=== PATIENT | male | born 1950 | race Hispanic/Latino ===

== ENCOUNTER 2016-05-16 14:49 | Inpatient (IN) | payer OTHER ==
[2016-05-16] MEDS ORDERED: ASPIRIN PO STA (14:59)
[2016-05-16 15:13] LABS: MANUAL DIFF NEEDED? NO
--- NOTE | 2016-05-16 15:15 | PROVIDER DOCUMENTATION ---
HPI-Syncope/Dizziness - General Source: patient, family - History of Present Illness-Syncope/Dizzy If witnessed syncope, by whom?: store staff found him unconscious Prior Episodes: reports: other (one prior episode) Onset/Duration: reports: abrupt, just prior to arrival Timing: reports: improving Position/Activity at time of episode: reports: activity Symptoms prior to episode: reports: none Context: reports: lost consciousness Loss of Consciousness: prolonged (minutes) Location of injury. (If syncope resulted in an injury.): reports: head (pt reports hitting head and some pain; no visible trauma) <Hawa Jeff - Last Filed: 05/16/16 16:18> <Derek Castillo - Last Filed: 05/16/16 19:45> - General Chief Complaint: Syncope Stated Complaint: SYNCOPE Time Seen by Provider: 05/16/16 15:45 Allergies/Adverse Reactions: Patient Allergies Allergy/AdvReac Type Severity Reaction Status Date / Time No Known Allergies Allergy Verified 05/16/16 14:54 Home Medications: Home Medication List Medication Instructions Recorded Confirmed Last Taken Type No Home Medications 05/16/16 05/16/16 Unknown History - History of Present Illness-Syncope/Dizzy Nature of Presenting Problem: 66 yo M presents to ED via EMS with cc of syncope. Pt was shopping and had a syncopal episode. Pt denies any premonition and reports he came to when a stores naval roused him. Pt believes the amount of time was around 10 minutes. Pt denies chest pain and SOB. Pt denies vigorous or moderate activity at the time. Pt reports hitting his head and his back. Upon arrival to ED, pt is alert and oriented and in no apparent distress. (Hawa Jeff) Review of Systems - Adult - REVIEW OF SYSTEMS - ADULT Constitutional: reports: no symptoms reported. denies: chills, fever Eyes: reports: no symptoms reported. denies: blurred vision, double vision Ears, Nose, Mouth & Throat: reports: no symptoms reported. denies: ear pain, sinus problem Cardiovascular: reports: syncope. denies: chest pain, palpitations Respiratory: reports: no symptoms reported. denies: shortness of breath, wheezing Gastrointestinal: reports: no symptoms reported. denies: abdominal pain, hematemesis Genitourinary: reports: no symptoms reported. denies: dysuria, flank pain Musculoskeletal: reports: back pain Integumentary: reports: no symptoms reported. denies: rash, skin sores/ulcer Neurological: reports: headache/migraines, syncope Psychiatric: reports: no symptoms reported. denies: anxiety, depression Endocrine: reports: no symptoms reported. denies: cold intolerance, heat intolerance Hematologic/Lymphatic: reports: no symptoms reported. denies: blood clots, lymphedema Allergic/Immunologic: reports: no symptoms reported. denies: allergic reactions , eczema All Other Systems: Reviewed and Negative <Hawa Jeff - Last Filed: 05/16/16 16:18> Past History - Adult - PAST MEDICAL HISTORY-ADULT Review of Records: reports: Old Records Reviewed, Nursing Assessment Review, Medications Reviewed - IMMUNIZATION STATUS Childhood Immunizations: See Nurse Assessment Flu Vaccine: See Nurse Assessment <Hwaa Jeff - Last Filed: 05/16/16 16:18> Physical Exam-General - PHYSICAL EXAM-ADULT Initial Vital Signs Reviewed: Yes - CONSTITUTIONAL General Appearance: appears well, alert, no apparent distress - EYES Eyes: PERRL/EOMI, pink conjunctivae - HEAD, EARS, NOSE, MOUTH & THROAT HENMT: normocephalic/atraumatic, moist mucous membranes - NECK Neck: non-tender, full range of motion, supple - RESPIRATORY Respiratory: chest non-tender, lungs clear, normal breath sounds - CARDIOVASCULAR Cardiovascular: normal peripheral pulses, regular rate, rhythm - GASTROINTESTINAL (ABDOMEN) Abdominal Exam: normal bowel sounds, non tender, soft - LYMPHATIC Lymphatic: no adenopathy - MUSCULOSKELETAL Back Exam: normal inspection, no vertebral tenderness Extremity: normal range of motion, non-tender - SKIN Integumentary: normal color, normal turgor, warm/dry - NEUROLOGIC Neurologic: grossly normal, no motor/sensory deficits - PSYCHIATRIC Psych/Mental Status: normal mood/affect, normal thought content, normal thought process, oriented x 3 <Hawa Jeff - Last Filed: 05/16/16 16:18> Progress - EKG 1 Time of EKG reading by physician:: 14:49 EKG Read and Signed by:: Pal Henyr EKG Interpretation (*Must complete 3 of following elements*): Abnormal Rate: 72 Rhythm: Sinus rhythm with PACs QRS: RBB 2 Time of EKG reading by physician:: 15:17 EKG Read and Signed by:: Pal Henry EKG Interpretation (*Must complete 3 of following elements*): Abnormal Rate: 62 Rhythm: Sinus with PACs QRS: RBB <RandeeHawa RamirezCole - Last Filed: 05/16/16 16:18> - EKG 3 Time of EKG reading by physician:: 18:24 (3) EKG Read and Signed by:: Ramirez Cuadra EKG Interpretation (*Must complete 3 of following elements*): Abnormal Rate: 62 Rhythm: SINUS RHYTHM W/ MARKED SINUS ARRHYTHMIA [place]: left QRS: RBB NC Interval: normal ST Wave: normal - XRAY 1 XRAY: Bilateral XRAY Study: Chest XRAY Interpretation: NEGATIVE - CT/MRI 1 CT Study: Angiogram CT Results: NO PE, PNEUMONIA, OR EFFUSIONS, CARDIOMEGALY. 2 CT Study: Head CT Results: NO BLOOD. NO INJURY. - CONSULTS/PCP/HOSPITALIST Notification #1 *Consult/PCP/Hospitalist*: DR PICKARD Time Discussed: 19:43 Reason/Comments: DR CUADRA SPOKE WITH DR PICKARD. DR PICKARD WILL ADMIT. Consult Disposition: Admit <Derek Castillo - Last Filed: 05/16/16 19:45> - PLAN OF CARE/RESULTS Progress/Plan/Lab Results: Laboratory Tests 05/16/16 05/16/16 05/16/16 14:57 14:57 14:57 WBC RBC Hgb Hct MCV MCH MCHC RDW Std Deviation Plt Count MPV Immature Gran % (Auto) Neut % (Auto) Lymph % (Auto) [place] % (Auto) Eos % (Auto) Baso % (Auto) Immature Gran # (Auto) Neut # (Auto) Lymph # (Auto) [place] # (Auto) Eos # (Auto) Baso # (Auto) PT INR APTT (Factor Assay) D-Dimer Sodium 138 Potassium 3.9 Chloride 100 Carbon Dioxide 22 L Anion Gap 16 BUN 17 Creatinine 0.9 BUN/Creatinine Ratio 19 Glucose 125 H POC Glucose Calculated Osmolality 279 Calcium 9.8 Magnesium 2.2 Total Bilirubin 0.40 AST 19 ALT 17 Alkaline Phosphatase 65 Creatine Kinase 108 Troponin T < 0.010 [id number] Pept 199 Total Protein 7.5 Albumin 4.8 Globulin 3.0 Albumin/Globulin Ratio 2.0 05/16/16 05/16/16 05/16/16 14:57 14:57 14:57 WBC 12.15 H RBC 5.50 Hgb 16.9 Hct 50.0 MCV 90.9 MCH 30.7 MCHC 33.8 RDW Std Deviation 13.8 Plt Count 280 MPV 11.2 H Immature Gran % (Auto) 0.6 H Neut % (Auto) 45.6 Lymph % (Auto) 39.3 [place] % (Auto) 7.5 Eos % (Auto) 6.6 Baso % (Auto) 0.4 Immature Gran # (Auto) 0.07 H Neut # (Auto) 5.54 Lymph # (Auto) 4.78 H [place] # (Auto) 0.91 H Eos # (Auto) 0.80 H Baso # (Auto) 0.05 PT 13.1 INR 0.96 APTT (Factor Assay) 33.6 D-Dimer 2.00 H Sodium Potassium Chloride Carbon Dioxide Anion Gap BUN Creatinine BUN/Creatinine Ratio Glucose POC Glucose Calculated Osmolality Calcium Magnesium Total Bilirubin AST ALT Alkaline Phosphatase Creatine Kinase Troponin T [id number]-[id number] Pept Total Protein Albumin Globulin Albumin/Globulin Ratio 05/16/16 05/16/16 05/16/16 16:30 17:15 17:15 WBC RBC Hgb Hct MCV MCH MCHC RDW Std Deviation Plt Count MPV Immature Gran % (Auto) Neut % (Auto) Lymph % (Auto) [place] % (Auto) Eos % (Auto) Baso % (Auto) Immature Gran # (Auto) Neut # (Auto) Lymph # (Auto) [place] # (Auto) Eos # (Auto) Baso # (Auto) PT INR APTT (Factor Assay) D-Dimer Sodium Potassium Chloride Carbon Dioxide Anion Gap BUN Creatinine BUN/Creatinine Ratio Glucose POC Glucose 110 H Calculated Osmolality Calcium Magnesium Total Bilirubin AST ALT Alkaline Phosphatase Creatine Kinase 102 Troponin T < 0.010 Chg-R-Rlufpyrijip Pept Total Protein Albumin Globulin Albumin/Globulin Ratio Orders Category Date Time Status Cardiac Monitoring DIRECTED Care 05/16/16 14:59 Active Oxygen Therapy- ED Nursing DIRECTED Care 05/16/16 14:59 Active Saline Loc NOW Care 05/16/16 14:59 Active CHEST-1 VIEW [RAD] Stat Exams 05/16/16 14:59 Draft CTA [ANGIOGRAM/PULMONARY ARTERIES] [CT] Stat Exams 05/16/16 16:27 Draft HEAD W/O CONTRAST [CT] Stat Exams 05/16/16 18:31 Taken CBC WITH ELECTRONIC DIFF [HEME] Stat Lab 05/16/16 14:57 Completed CK PROFILE [SP CHEM] Stat Lab 05/16/16 14:57 Completed CK PROFILE [SP CHEM] Stat Lab 05/16/16 17:15 Completed COMPREHENSIVE METABOLIC PANEL [CHEM] Stat Lab 05/16/16 14:[address] D-DIMER PL [COAG] Stat Lab 05/16/16 14:57 Completed MAGNESIUM [CHEM] Stat Lab 05/16/16 14:57 Completed PRO B-NATRIURETIC PEPTIDE Stat Lab 05/16/16 14:57 Completed [address]IME WITH INR PL [COAG] Stat Lab 05/16/16 14:[address] [COAG] Stat Lab 05/16/16 14:57 Completed TROPONIN T Stat Lab 05/16/16 14:57 Completed TROPONIN T Stat Lab 05/16/16 17:15 Completed Aspirin Med 05/16/16 14:59 Discontinued 325 mg PO STAT STA EKG [EKG] Stat Ther 05/16/16 14:59 Draft EKG [EKG] Stat Ther 05/16/16 17:12 Draft Vital Signs - 24 hr 05/16/16 05/16/16 05/16/16 14:50 15:00 15:16 Pulse Rate 63 55 L 57 L Respiratory 16 21 15 Rate Blood Pressure 218/90 219/98 214/85 O2 Sat by Pulse 100 100 Oximetry 05/16/16 05/16/16 05/16/16 15:30 15:45 16:00 Pulse Rate 56 L 53 L 52 L Respiratory 17 18 20 Rate Blood Pressure 228/102 210/95 223/94 O2 Sat by Pulse 100 100 99 Oximetry 05/16/16 05/16/16 05/16/16 16:30 16:45 17:00 Pulse Rate 52 L 49 L 47 L Respiratory 18 16 18 Rate Blood Pressure 220/105 208/99 190/85 O2 Sat by Pulse 93 L 98 98 Oximetry 05/16/16 05/16/16 05/16/16 17:15 18:13 18:16 Pulse Rate 54 L 60 53 L Respiratory 16 13 28 H Rate Blood Pressure 218/86 202/184 205/87 O2 Sat by Pulse 98 97 99 Oximetry 05/16/16 05/16/16 18:40 18:55 Pulse Rate 60 54 L Respiratory 21 16 Rate Blood Pressure 206/86 156/88 O2 Sat by Pulse 97 Oximetry (Derek Castillo) Departure <Hawa Jeff - Last Filed: 05/16/16 16:18> - Departure Time of Disposition Order: 19:44 Certified Medical Emergency: Emergent <Derek Castillo - Last Filed: 05/16/16 19:45> - Departure DIAGNOSIS: Syncope Qualifiers: Syncope type: unspecified Qualified Code(s): R55 - Syncope and collapse Disposition: ADMITTED INPATIENT 09 Condition: Stable Additional Instructions: ED Follow Up Instructions: You have been treated by a care provider in the Emergency Department. These instructions are being provided to you so you can have an understanding of how to care for yourself upon discharge. Upon discharge from the Emergency Department, you are responsible for making arrangements for follow-up care by a physician of your choice. Take all prescribed medications as directed. Return to the Emergency Department immediately for any new or worsening symptoms. You may call the Physician Referral phone number at [phone] to obtain a list of Physicians who are taking new patients. Attestation - Scribe Verification/Attestation Scribe:: Hawa Jeff Acting as Scribe for:: Pal Henry Scribe documention review:: This chart was documented by a scribe and accurately reflects the service the provider performed and the decisions made by the provider. - Physician/ MANJINDER Attestation Patient care was provided by Advanced Practice Provider:: No <Hawa Jeff - Last Filed: 05/16/16 16:18> - Scribe Verification/Attestation Scribe:: Derek Castillo Acting as Scribe for:: Ramirez Cuadra Scribe documention review:: This chart was documented by a scribe and accurately reflects the service the provider performed and the decisions made by the provider. <Derek Castillo - Last Filed: 05/16/16 19:45> Physician Attestation
[2016-05-16 15:20] LABS: BASO% 0.4 % (0.0-0.8); EOS% 6.6 % (0.0-10.0); HEMOGLOBIN 16.9 g/dL (14.0-18.0); IMM GRAN# 0.07 X1000 (0.0-0.04); IMM GRAN% 0.6 % (0.0-0.5); LYMPH# 4.78 X1000 (1.2-3.4); LYMPH% 39.3 % (20.5-51.1); MCH 30.7 PG (27-31); MCHC 33.8 g/dL (33-37); MCV 90.9 FL (81-99); MONO# 0.91 X1000 (0.11-0.59); MONO% 7.5 % (1.7-9.3); MPV 11.2 FL (7.4-10.4); NEUT% 45.6 % (42.2-75.2); PLT 280 X1000 (130-400)
[2016-05-16 15:46] LABS: PROTIME 13.1 Seconds (12.1-15.5); PTT PL 33.6 Seconds (22.6-43.9)
[2016-05-16 15:47] LABS: INR 0.96 (0.86-1.15)
--- NOTE | 2016-05-16 16:02 | EKG Report ---
Test Performed on : 05/16/2016 3:17:06 PM Test Reason : TINY Blood Pressure : / mmHG Vent. Rate : 062 BPM Atrial Rate : 062 BPM P-R Int : 156 ms QRS Dur : 174 ms QT Int : 470 ms P-R-T Axes : 027 -27 021 degrees QTc Int : 477 ms Sinus rhythm. with premature atrial complexes. Right bundle branch block Abnormal ECG When compared with ECG of 16-MAY-2016 14:49, (Unconfirmed) No significant change was found Unconfirmed Result
[2016-05-16 16:17] LABS: SODIUM 138 mmol/L (136-145)
[2016-05-16 16:18] LABS: AGAP 16; ALBUMIN 4.8 g/dL (3.5-5.0); BUN 17 mg/dL (8-22); CALCIUM 9.8 mg/dL (8.8-10.2); CHLORIDE 100 mmol/L (98-107); COSMO 279; POTASSIUM 3.9 mmol/L (3.5-5.1); TCO2 22 mmol/L (25-35); TOTAL PROTEIN 7.5 g/dL (6.3-8.3)
[2016-05-16 16:19] LABS: ALKALINE PHOSPHATASE 65 U/L (32-122); CK PROFILE 108 U/L (24-204); GOT 19 U/L (10-34); GPT 17 U/L (10-44); MAGNESIUM 2.2 mg/dL (1.5-2.7)
--- NOTE | 2016-05-16 17:47 | Diag Imaging Result Document ---
PROCEDURE NAME: CHEST-1 VIEW - 05/16/2016 CHEST, SINGLE VIEW: FINDINGS: No comparison films. The lungs are well expanded. The heart is not enlarged. The vessels are not distended. No pneumonia. No pleural effusions identified. IMPRESSION: Negative chest.
--- NOTE | 2016-05-16 18:45 | EKG Report ---
Test Performed on : 05/16/2016 5:10:21 PM Test Reason : syncope ekg #2 Blood Pressure : / mmHG Vent. Rate : 066 BPM Atrial Rate : 066 BPM P-R Int : 148 ms QRS Dur : 164 ms QT Int : 466 ms P-R-T Axes : 032 -31 011 degrees QTc Int : 488 ms Sinus rhythm. with premature atrial complexes. Left axis deviation Right bundle branch block Abnormal ECG When compared with ECG of 16-MAY-2016 15:17, (Unconfirmed) No significant change was found Unconfirmed Result
--- NOTE | 2016-05-16 19:32 | Diag Imaging Result Document ---
PROCEDURE NAME: ANGIOGRAM/PULMONARY ARTERIES - 05/16/2016 STUDY: CT chest with intravenous contrast. No pleural effusions. No cardiomegaly. No thoracic aortic aneurysm or dissection. Normal opacification of the pulmonary arteries and the major branches. No enlarged mediastinal or hilar lymph nodes. There are no infiltrates. No bronchiectasis. I do not identify a lung mass. IMPRESSION: 1. No pneumonia. 2. No pulmonary emboli. A preliminary report was given at 6:18 p.m.
[2016-05-16] MEDS ORDERED: ZOFRAN IV PRN (19:45)
[2016-05-16] MEDS ORDERED: TYLENOL PO PRN (19:45)
[2016-05-16] MEDS ORDERED: NS 1,000 ML IV SCH (19:45)
--- NOTE | 2016-05-16 20:24 | Diag Imaging Result Document ---
PROCEDURE NAME: HEAD W/O CONTRAST - 05/16/2016 STUDY: CT brain without contrast. PROTOCOL: Dose reduction protocol. Contrast is present from pulmonary CT performed earlier. No parenchymal hemorrhage. No epidural or subdural hematoma. No subarachnoid hemorrhage. No mass identified. No midline shift. No hydrocephalus. No sinus opacification. There is a tiny amount of mucus in the right maxillary and right sphenoid sinuses. IMPRESSION: No hemorrhage. Negative brain CT. A preliminary report was given at 7:32 p.m.
[2016-05-17 06:24] LABS: HEMATOCRIT 46.6 % (42.0-52.0); HEMOGLOBIN 15.6 g/dL (14.0-18.0); MCH 30.6 PG (27-31); MCHC 33.5 g/dL (33-37); MCV 91.4 FL (81-99); MPV 11.3 FL (7.4-10.4); RBC 5.1 XMIL (4.7-6.1)
[2016-05-17 06:32] LABS: AGAP 11; ALBUMIN 4.1 g/dL (3.5-5.0); ALKALINE PHOSPHATASE 55 U/L (32-122); BUN 17 mg/dL (8-22); CALCIUM 8.8 mg/dL (8.8-10.2); CHLORIDE 101 mmol/L (98-107); COSMO 273; GOT 16 U/L (10-34); GPT 14 U/L (10-44); MAGNESIUM 2.1 mg/dL (1.5-2.7); SODIUM 136 mmol/L (136-145); TCO2 23 mmol/L (25-35); TOTAL PROTEIN 6.8 g/dL (6.3-8.3)
[2016-05-17] MEDS ORDERED: PRINIVIL PO SCH (09:00)
[2016-05-17] MEDS ORDERED: APRESOLINE IV PRN (09:14)
[2016-05-17] MEDS ORDERED: ASPIRIN PO SCH (09:30)
--- NOTE | 2016-05-17 11:07 | HISTORY AND PHYSICAL ---
PRIMARY CARE PHYSICIAN: None. CHIEF COMPLAINT: Syncope while shopping. HISTORY OF PRESENTING ILLNESS: This is a 66-year-old, male, who presented to [facility] ER after he had been shopping and began feeling some dizziness and passed out while shopping. States he did hit his head and his back. When he arrived to the emergency room he had a blood pressure of 225/103. LABORATORY DATA: Showed a white blood cell count of 12.15. Had a D-dimer of 2.00. His cardiac enzymes x3 sets have been negative. His echocardiogram showed sinus rhythm with PACs with a right bundle branch block at 62. A pulmonary arteriogram showed no pneumonia and no pulmonary emboli. A CT of the head showed no hemorrhage, negative brain CT. He was admitted for further evaluation and treatment. PAST MEDICAL HISTORY: None. PAST SURGICAL HISTORY: None. FAMILY HISTORY: Noncontributory. SOCIAL HISTORY: Currently lives with his . Denies any tobacco, alcohol, or illicit drug use. ALLERGIES: He has no known drug allergies. HOME MEDICATIONS: He was not taking any medications on a routine basis. LABORATORY DATA: Showed a white blood cell count of 12.15, a hemoglobin of 16.9 hematocrit 50, platelets 280,000. PT and INR of 13.1 and 0.96 with a D-dimer of 2.00. Sodium of 138, potassium 3.9, chloride 100, CO2 22, BUN of 17, creatinine 0.9, glucose 125. Cardiac enzymes x3 sets were negative. CT of the head showed no hemorrhage. Negative brain CT. Pulmonary arteriogram showed no pulmonary emboli. No pneumonia. EKG showed sinus rhythm with PACs with a right bundle branch block at 62. Chest x-ray showed a negative chest. REVIEW OF SYSTEMS: He denied any blurred vision. He was positive for dizziness, denied any chest pain, coughing, shortness of breath, constipation, diarrhea, burning or hurting with urination. Denied headache. PHYSICAL EXAMINATION: VITAL SIGNS: Again on arrival his vital signs were a pulse of 68, respirations 18, blood pressure 225/103, saturating 98% on room air. Currently, he has a temperature of 97.5 degrees, pulse 61, respirations 16, blood pressure 204/85 saturating 100% on room air. GENERAL: This is a 66-year-old male who is lying in the bed, and answers all questions appropriately. HEENT: Normocephalic and atraumatic. Pupils are equal, round, and reactive to light. The extraocular movements are intact. The oropharynx and nares are clear. NECK: Supple. LUNGS: Clear to auscultation bilaterally with equal lung expansion and chest wall movement. HEART: With regular rate and rhythm. No murmurs, rubs, or gallops. ABDOMEN: Soft, nontender, nondistended. Bowel sounds are present x4 quadrants. EXTREMITIES: There is no clubbing, cyanosis, or edema. NEUROLOGICAL: The cranial nerves 2-12 appear grossly intact. ASSESSMENT: 1. Syncope. 2. Accelerated hypertension, new onset. 3. Elevated D-dimer. PLAN: He was admitted to the medical unit at [facility]. Neuro checks q.4 hours for 24 hours. Placed on telemetry. We will obtain a carotid ultrasound bilaterally and echocardiogram and a lower extremity venous Doppler. He was placed on lisinopril 10 mg p.o. daily, Zofran 4 mg IV q.4 hours, Tylenol 650 p.o. q.6, hydralazine 10 mg IV every 6 p.r.n. for a systolic blood pressure greater than 180, and diastolic blood pressure greater than 100, and we will give him his aspirin daily 325 mg. Dictated by ANU Boss for Ignacio Hunt MD
[2016-05-17 16:13] VITALS: BP 164/72
--- NOTE | 2016-05-18 04:21 | ECHO REPORT ---
ORDER DATE: 05/17/2016 MEASUREMENTS: Left ventricular end-diastolic diameter 4.1 and systolic diameter 2.9. Posterior wall thickness 1.5, septal thickness 1.5, left atrium 4.1, aortic root 3.2. SUMMARY: 1. Adequate acoustic windows. 2. Sclerotic changes and calcification involving the aortic valve, particularly noncoronary cusp. The aortic valve opening appears adequate on two-dimensional images. Peak gradient across the aortic valve is 28 mmHg with a mean gradient of 15 mmHg. Mild aortic stenosis is suggested. Mitral and tricuspid valves are without obstruction abnormality, with mild mitral regurgitation and trace tricuspid regurgitation. Pulmonic valve was without obstruction abnormality. There is trace aortic insufficiency. Mitral, tricuspid, and pulmonic valves are without obstruction abnormality, with mild mitral regurgitation and trace tricuspid station. Aortic root is normal in size. 3. Normal left ventricular chamber size with moderate concentric left hypertrophy demonstrated. Estimated left ejection fraction is 60%. No regional wall motion abnormalities are evident. Doppler suggests normal left ventricular diastolic function. Left atrium is mildly enlarged. Right atrial and right ventricle are normal size with grossly preserved right ventricular systolic performance. 4. No pericardial effusion. 5. Appearance of inferior vena cava suggests normal central venous pressure. CONCLUSIONS: 1. Fibrocalcific changes involving the aortic valve, particularly noncoronary cusp with mild aortic stenosis and trace aortic insufficiency. 2. Mild mitral regurgitation. 3. Moderate concentric left ventricular hypertrophy with preserved left ventricular function. 4. Mild left atrial enlargement.
--- NOTE | 2016-05-18 06:32 | CONSULTATION ---
DATE OF CONSULTATION: 05/17/2016 CONSULTATION REQUESTED BY: Hospitalist Service. REASON FOR CONSULTATION: Syncope. HISTORY: Mr. Evangelista is a 66-year-old [place] male who presented to the hospital on the day of admission at about 2:59 p.m. with complaints that he was shopping at a grocery store and, all of a sudden, as he was standing by the [employer] site, he lost consciousness for a very short period of time. He had no prodrome of this syncopal episode. was next to him. He did not appear to be pale or diaphoretic. He recovered consciousness very quickly, however, they called the ambulance and he was brought to the hospital. Upon presentation, his electrocardiogram was noted to have a pattern of sinus rhythm with a right bundle branch block, a left anterior fascicular block, and PACs. Subsequent EKG shows exactly the same pattern. No ischemia is noted. They did a CT of the chest with contrast and that showed no pneumonia, no pulmonary emboli. A 2D echocardiogram has been done and it shows a mild degree of aortic stenosis, a [id number] degree of mitral regurgitation, normal ejection fraction of the left ventricle. The patient had a troponin level checked, total of 2 times, both negative. Pro BNP level is normal. Chest x-ray shows no acute abnormality. The patient basically has not had any further complaints since admission. The patient states that he is able to walk up to 6 miles 3 times a week. He has really no complaints of any kind. His says that he drinks too much Coca [employer] and he does not really complain of anything. PAST MEDICAL HISTORY: His past medical history is really negative. He has not been sick or in the hospital in many years. PAST SURGICAL HISTORY: He has no past surgical history to speak of. FAMILY HISTORY: Family history is noncontributory. SOCIAL HISTORY: He has been to his for more than 40 years. They have two grownup children. He used to work for [employer] for 40 years and he retired about 8 or 9 years ago. He is not a smoker, not a drinker. MEDICATIONS: He does not take any prescription medication. ALLERGIES: He has no reported allergies. REVIEW OF SYSTEMS: He really is a healthy person. Multiple systems, hematology , metabolic, neurological, cardiovascular, pulmonary, GI, musculoskeletal, skin, hearing, vision, etc. are all negative. No psychiatric illness. PHYSICAL EXAMINATION: VITAL SIGNS: Today blood pressure is 164/72. Temperature is 97.8. Pulse 93. Respirations 16. GENERAL: He is awake, alert, oriented, in no distress. HEENT: Unremarkable. CHEST: Clear to auscultation and percussion. CARDIAC: Heart sounds are regular and rhythmic with some extrasystole. He does have a systolic murmur over the aortic area and also at the apex of the left ventricle. Both are about 2/6 in intensity. ABDOMEN: Soft, nontender. No masses. No hepatomegaly. EXTREMITIES: Show good pulses, no peripheral edema. NEUROLOGIC: He moves four extremities. He has no obvious deficit. IMPRESSION: 1. Patient who presented to the hospital with syncopal episode. 2. Patient has an abnormal electrocardiogram with a right bundle branch block and left anterior fascicular block. 3. Patient has hypertension which is a newly diagnosed condition. RECOMMENDATIONS: At this point in time, the patient was advised to follow a very healthy lifestyle. Maintain adequate hydration. Avoid salt. I would like to give him a 48-hour Holter monitor for evaluation of his rhythm and then, if nothing is found, I will give him a 30-day PHILLIP monitor. I will arrange for followup in my office. We will plan on doing at some point a treadmill exercise stress test. Further advice will be forthcoming. Of note, I must mention that I have reviewed this patient's CT of the chest that was done at the time of admission because of a diagnosis of syncope. That CT scan of the chest shows that he has extensive calcification of the left anterior descending coronary artery and also a calcification of the right coronary artery. We will suggest to the patient to take baby aspirin every day and to monitor his blood pressure at home. We will arrange for followup at the office within the next few days. Further instructions will be forthcoming. MTDD
--- NOTE | 2016-05-18 07:14 | Extremity Venous Study ---
PROCEDURE NAME: Carotid Ultrasound - 05/17/2016 CAROTID FLOW STUDIES: FINDINGS: There is mild atherosclerotic plaquing at the bilateral carotid bulbs. Maximum systolic velocity in the right internal carotid artery is 104 cm/sec, maximal diastolic velocity is 7 cm/sec. The right internal to common carotid artery systolic velocity ratio is 0.97. The flow velocities and ratio are consistent with less than 40% stenosis in the right internal carotid artery. Maximum systolic velocity in the left internal carotid artery is 95 cm/sec, and maximum diastolic velocity is 25 cm/sec. The left internal to common carotid artery systolic velocity ratio is 0.65. The flow velocities and ratio are consistent with less than 40% stenosis in the left internal carotid artery. The bilateral vertebral arteries demonstrate antegrade flow. IMPRESSION: Mild atherosclerotic plaquing at the bilateral carotid bulbs. No evidence of hemodynamically significant stenosis in either carotid system.
--- NOTE | 2016-05-18 15:04 | DISCHARGE SUMMARY ---
ADMISSION DATE: 05/17/2016 DISCHARGE DATE: 05/17/2016 DISCHARGE DIAGNOSES: 1. Syncope resolved. 2. Right bundle branch block with left anterior fascicular block. 3. Hypertension. CONSULTATIONS: Cardiology. PROCEDURES: None. BRIEF HOSPITAL COURSE: Patient is a 66-year-old male who presented to the emergency department after a syncopal episode. He was noted to have an abnormal EKG. Dr. Salcido was consulted. Uncertain of how much of this is old versus new. Patient fortunately was able to ambulate without any difficulty. On discharge he was awake, alert. He was in no distress and, therefore, he will be discharged home. DISPOSITION: The patient will be discharged home. FOLLOWUP: He will follow up outpatient with Cardiology in the next day or 2 to get a Holter monitor. He will follow up afterwards with Dr. Salcido for results as well as for further treatment of his blood pressure. DISCHARGE TIME: 35 minutes was spent in discharge planning and instructions.
== END 2016-05-17 20:41 | disposition home or self-care (01) | DRG 312 ==
LOC: P.ED 14:49 → P.MEDSURG 20:14
PROVIDERS: ATTEND Family Medicine
DX: R55 Syncope and collapse (principal); I10 Essential (primary) hypertension; I49.1 Atrial premature depolarization; I45.10 Unspecified right bundle-branch block; I44.4 Left anterior fascicular block
CPT/HCPCS: 36415; 70450; 71010; 71275; 80053; 82550; 82948; 83735; 83880; 84443; 84484; 85025; 85027; 85379; 85610; 85730; 93005; 93306; 93880; 93970; J0360; J7030; Q9967

== ENCOUNTER 2016-08-22 15:18 | Inpatient (IN) ==
--- NOTE | 2016-08-22 16:02 | EKG Report ---
Test Performed on : 08/22/2016 3:43:13 PM Test Reason : TINY Blood Pressure : / mmHG Vent. Rate : 056 BPM Atrial Rate : 056 BPM P-R Int : 186 ms QRS Dur : 162 ms QT Int : 484 ms P-R-T Axes : 049 -23 020 degrees QTc Int : 467 ms Sinus bradycardia. Possible Left atrial enlargement Right bundle branch block Abnormal ECG When compared with ECG of 16-MAY-2016 18:24, No significant change was found Unconfirmed Result
--- NOTE | 2016-08-22 16:46 | Diag Imaging Result Doc PS360 ---
EXAM: CHEST-2 VIEWS INDICATION: syncope TECHNIQUE: 2 views COMPARISON: 05/16/2016 FINDINGS: There is suggestion of minimal linear atelectasis at the right lower lung zone. The lungs are grossly clear, otherwise. There is no discrete pleural fluid collection or pneumothorax. The cardiomediastinal silhouette and central vasculature are grossly unremarkable. IMPRESSION: Minimal right lower lung zone atelectasis. Electronically signed by Terence Mc 08/22/2016 4:43 PM
[2016-08-22 16:58] LABS: MANUAL DIFF NEEDED? NO
[2016-08-22 17:00] LABS: BASO% 0.3 % (0.0-0.8); EOS# 0.46 X1000 (0.0-0.7); HEMATOCRIT 40.6 % (42.0-52.0); HEMOGLOBIN 14.3 g/dL (14.0-18.0); IMM GRAN# 0.02 X1000 (0.0-0.04); IMM GRAN% 0.2 % (0.0-0.5); LYMPH# 2.04 X1000 (1.2-3.4); LYMPH% 17.8 % (20.5-51.1); MCH 31.2 PG (27-31); MCHC 35.2 g/dL (33-37); MCV 88.5 FL (81-99); MONO# 1.36 X1000 (0.11-0.59); MONO% 11.9 % (1.7-9.3); NEUT% 65.8 % (42.2-75.2); PLT 309 X1000 (130-400); RBC 4.59 XMIL (4.7-6.1)
[2016-08-22 17:26] LABS: AGAP 13; ALBUMIN 4.3 g/dL (3.5-5.0); ALKALINE PHOSPHATASE 63 U/L (32-122); BUN 11 mg/dL (8-22); CALCIUM 9.5 mg/dL (8.8-10.2); CHLORIDE 90 mmol/L (98-107); CK PROFILE 99 U/L (24-204); COSMO 255; GOT 19 U/L (10-34); GPT 40 U/L (10-44); POTASSIUM 4.3 mmol/L (3.5-5.1); SODIUM 127 mmol/L (136-145); TCO2 25 mmol/L (25-35); TOTAL PROTEIN 6.7 g/dL (6.3-8.3)
--- NOTE | 2016-08-22 17:28 | PROVIDER DOCUMENTATION ---
This chart was entered by Racheal Soto Scribe, acting as scribe for Pal Henry MD. HPI-General Adult - General Chief Complaint: B/P Problems Stated Complaint: WEAKNESS/FAINTED Time Seen by Provider: 08/22/16 15:52 Source: patient, family Allergies/Adverse Reactions: Patient Allergies Allergy/AdvReac Type Severity Reaction Status Date / Time No Known Allergies Allergy Verified 08/22/16 15:29 Home Medications: Home Medication List Medication Instructions Recorded Confirmed Last Taken Type Apixaban [Eliquis] 1 tab PO BID 08/22/16 08/22/16 08/22/16 History Labetalol [Trandate] 1 tab PO BID 08/22/16 08/22/16 08/22/16 History - History of Present Illness -Gen Adult Nature of Presenting Problems: 66 yo M presents to the ER with complaint of weakness, dizziness, and syncopal episode this morning. 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 Upon arrival pt has a BP of 209/94. also reports him urinating frequently at night. Denies any CP, SOB, or BULLARD. Onset/Duration: reports: this morning Associated Symptoms: reports: dizziness, syncope, weakness Review of Systems - Adult - REVIEW OF SYSTEMS - ADULT Constitutional: denies: chills, fever Cardiovascular: denies: chest pain, palpitations Respiratory: denies: cough, shortness of breath Gastrointestinal: denies: abdominal pain, diarrhea, nausea, vomiting Past History - Adult - PAST MEDICAL HISTORY-ADULT Review of Records: reports: Nursing Assessment Review, Medications Reviewed Cardiovascular: reports: HTN - IMMUNIZATION STATUS Childhood Immunizations: See Nurse Assessment Flu Vaccine: See Nurse Assessment Physical Exam-General - PHYSICAL EXAM-ADULT Initial Vital Signs Reviewed: Yes - CONSTITUTIONAL General Appearance: alert, no apparent distress - EYES Eyes: PERRL/EOMI, pink conjunctivae - HEAD, EARS, NOSE, MOUTH & THROAT HENMT: normocephalic/atraumatic, normal ENT inspection - NECK Neck: supple, normal inspection. negative: carotid bruit - RESPIRATORY Respiratory: chest non-tender, lungs clear, normal breath sounds, no pleuratic chest pain, no respiratory distress, no accessory muscle use - CARDIOVASCULAR Cardiovascular: normal peripheral pulses, bradycardia, systolic murmur - GASTROINTESTINAL (ABDOMEN) Abdominal Exam: normal bowel sounds, non tender, soft - MUSCULOSKELETAL Back Exam: no CVA tenderness, no vertebral tenderness Extremity: normal gait, normal inspection - SKIN Integumentary: normal color, warm/dry - NEUROLOGIC Neurologic: grossly normal, no motor/sensory deficits - PSYCHIATRIC Psych/Mental Status: normal mood/affect, normal thought content, normal thought process, oriented x 3 Progress - PLAN OF CARE/RESULTS Progress/Plan/Lab Results: Vital Signs - 8 hr 08/22/16 15:30 Temperature 97.7 F Pulse Rate 48 L Respiratory Rate 16 Blood Pressure 208/96 O2 Sat by Pulse Oximetry 99 Result Diagrams: 08/22/16 16:54 08/22/16 16:54 - EKG 1 Time of EKG reading by physician:: 15:43 EKG Read and Signed by:: Pal Henry EKG Interpretation (*Must complete 3 of following elements*): Abnormal Rate: 56 Rhythm: sinus javid [place]: normal QRS: RBB WA Interval: normal ST Wave: normal Comments: possible left atrial enlargement - XRAY 1 XRAY Study: Chest Impression: Normal (negative, per radiologist) - CONSULTS/PCP/HOSPITALIST Notification #1 *Consult/PCP/Hospitalist*: Dr. Ben Slade Discussed: 16:10 Reason/Comments: Admit Consult Disposition: Admit #2 Consult: Dr. Gilbert Slade Discussed: 16:37 Consult Disposition: Will see in ED Departure - Departure Date of Disposition Decision: 08/22/16 Time of Disposition Decision: 17:26 DIAGNOSIS: Syncope, HBP (high blood pressure), AV block, 3rd degree Disposition: HOME 01 Certified Medical Emergency: Emergent Condition: Stable Additional Freetext Instructions: ED Follow Up Instructions: You have been treated by a care provider in the Emergency Department. These instructions are being provided to you so you can have an understanding of how to care for yourself upon discharge. Upon discharge from the Emergency Department, you are responsible for making arrangements for follow-up care by a physician of your choice. Take all prescribed medications as directed. Return to the Emergency Department immediately for any new or worsening symptoms. You may call the Physician Referral phone number at [phone] to obtain a list of Physicians who are taking new patients. Referrals and Follow-Ups: RENE HUMMEL [Primary Care Provider] - - Critical Care Note This patient required my direct & personal management of CC.: No This chart was documented by the indicated scribe, (Racheal Soto Scribe) and accurately reflects the services I performed and decisions made by me, Pal Henry MD, as attested by the provider's signature.
[2016-08-22] MEDS ORDERED: ZOFRAN IV PRN (17:40)
[2016-08-22] MEDS ORDERED: APRESOLINE IV PRN ×2 (17:40→19:03)
[2016-08-22] MEDS ORDERED: NS 1,000 ML IV SCH (17:40)
--- NOTE | 2016-08-22 18:19 | HISTORY AND PHYSICAL ---
CHIEF COMPLAINT: Syncope. HISTORY OF PRESENT ILLNESS: This is a 66-year-old male with a history of hypertension, hyponatremia, atrial fibrillation and syncope. He presented to the emergency room after having a witnessed syncopal episode per his . She stated that he was standing up talking on the phone and he became very still, had his eyes open wide and he fell to the floor. He had no seizure activity, no incontinence of bowel or bladder. There was a little bit of time before he woke up. There is a language barrier but it seems like it is probably 30 seconds or less in talking to the . The patient remembers stating talking on the phone. He does not remember a feeling of dizziness, shortness of breath, nausea, warmth or having any warning. They reported negative history until sometime about 2-1/2 or 3 months ago when he had another syncopal episode and was taken to the emergency room. He ultimately ended up being admitted in [facility] and stayed for somewhere between 7 and 14 days with diagnosis of atrial fibrillation, started on Eliquis and labetalol 100 mg b.i.d. He has been on this medication with no trouble until Tuesday. He started having a little dizziness and feeling tired Tuesday and this did progress to where , Tuesday he started having dizziness when he walked, he would have to walk very slow. Yesterday he sat around a lot to keep from being dizzy then today he had a syncopal episode while standing. He denied any chest pain, palpitations, warning of syncope, nausea, vomiting, shortness of breath, PND, orthopnea. PAST MEDICAL HISTORY: Hypertension, hyponatremia, atrial fibrillation. PAST SURGICAL HISTORY: Denies. SOCIAL HISTORY: Denies alcohol, tobacco, or illicit drug use. He does live with his . He is retired from the [employer]. ALLERGIES: No known drug allergies. HOME MEDICATIONS: Labetalol 100 mg p.o. b.i.d. and Eliquis 2.5 mg p.o. b.i.d. REVIEW OF SYSTEMS: A 14 point review of systems is discussed with the patient with pertinent positives stated in HPI. He denied chest pain, chest pressure, palpitations, shortness of breath, cough, fever, chills, nausea, vomiting, diarrhea, constipation, black or bloody vomitus, black or bloody stools, hematuria, dysuria, frequency, urgency. PHYSICAL EXAMINATION: GENERAL: This is a 66-year-old male who is lying in the bed in no distress. VITAL SIGNS: Blood pressure is 190/88 with a heart rate varying from 40-46, respirations are 16, temperature is 97.7 degrees, O2 saturations are 99% on room air. HEENT: Head is normocephalic, atraumatic. Pupils equal, round, react to light. EOMs are intact. Sclerae anicteric. Mucous membranes are moist. NECK: Supple. Trachea midline. CARDIOVASCULAR: He is bradycardic with a rate varying between 40 and 44. S1 and S2 appreciated. PULMONARY: Breath sounds are clear. No increased work of breathing noted. GASTROINTESTINAL: Abdomen is soft, nontender, nondistended with bowel sounds in all 4 quadrants. BACK: No CVAT. No spine tenderness. MUSCULOSKELETAL: Good range of motion of joints. NEUROLOGIC: He is alert and oriented x3. Cranial nerves 2-12 grossly intact. EXTREMITIES: No clubbing, cyanosis, or edema. Pulses are palpable x4. Calves are nontender. DIAGNOSTICS: WBC is 11.45 with hemoglobin 14.3, hematocrit 40.6, and platelets of 309,000. Sodium is 127, potassium 4.3, BUN 11, creatinine 0.8 with a glucose of 103. EKG revealed sinus bradycardia at a rate of 56 with a right bundle. When compared to EKG of May 2016 there was no significant change found. In review of the EKG in May he did have 2 EKGs, at this time his rate was 64 and 66 and he did have a right bundle. ASSESSMENT AND PLAN: 1. Syncope. Will hold his beta jassi, hold his labetalol, will hold any rate controlling medications. He will be placed on telemetry. He will remain on bedrest. We will transfer to [facility] and Cardiology can follow daily. 2. Hypertension. We will add hydralazine IV p.r.n. and monitor vital signs. 3. Hyponatremia. According to the family members, he was in [facility] for quite some time and during this time he was told he needed to see a scrap picker. He is supposed to see Dr. Liu coming up but we are not sure when the date is, he has not seen him yet. We will give saline and gently hydrate. 4. Hypertension. We will hold any antihypertensives. At present will use hydralazine. 5. History of atrial fibrillation. They state that he was on labetalol for his hypertension and his atrial fibrillation. We will of course hold any rate controlling medications. Will continue Eliquis and follow. 6. Deep vein thrombosis prophylaxis. Will continue his Eliquis and GI prophylaxis will start Prilosec. 7. The patient had an appointment with Dr. Bruce, pocket creaser in [place]. The stated that because his sodium was low they canceled this appointment but he was supposed to follow up with his primary care physician. We have spoken with Dr. Contreras with cardiology, myself as well as the ER doctor have. He will be followed by Cardiology here. We will obtain records from [facility]. We will trend labs. Further treatments pending hospital course. Dictated by ANU Petersen for Ignacio Hunt MD cc: ANU Petersen MD
[2016-08-22] MEDS ORDERED: PROCARDIA ER PO ONE (19:04)
[2016-08-22] MEDS ORDERED: ATROPINE IV PRN (19:04)
[2016-08-22] MEDS ORDERED: ADALAT CC PO ONE (19:15)
[2016-08-22] MEDS: PRINIVIL PO SCH (22:57)
[2016-08-22] MEDS: ELIQUIS PO SCH (22:58)
[2016-08-23 07:27] LABS: AGAP 17; ALBUMIN 4.9 g/dL (3.5-5.0); ALKALINE PHOSPHATASE 76 U/L (32-122); BUN 8 mg/dL (8-22); CALCIUM 9.7 mg/dL (8.8-10.2); CHLORIDE 88 mmol/L (98-107); COSMO 254; GOT 19 U/L (10-34); GPT 42 U/L (10-44); POTASSIUM 4.3 mmol/L (3.5-5.1); SODIUM 128 mmol/L (136-145); TCO2 23 mmol/L (25-35); TOTAL BILIRUBIN 1.12 mg/dL (0.20-1.00); TOTAL PROTEIN 7.4 g/dL (6.3-8.3)
[2016-08-23 09:01] LABS: HEMATOCRIT 46.2 % (42.0-52.0); HEMOGLOBIN 16.3 g/dL (14.0-18.0); MCH 31.1 PG (27-31); MCHC 35.3 g/dL (33-37); MCV 88.2 FL (81-99); MPV 11.2 FL (7.4-10.4); RBC 5.24 XMIL (4.7-6.1)
[2016-08-23] MEDS: ELIQUIS PO SCH ×2 (09:33→22:41)
[2016-08-23] MEDS: PRINIVIL PO SCH ×2 (09:33→22:41)
--- NOTE | 2016-08-23 10:32 | PROGRESS NOTE ---
DATE: 08/23/2016 HISTORY: Patient came in from syncope episode. A 66-year-old with a history of hypertension, hyponatremia, atrial fibrillation, and he had a syncopal episode. Presented to the emergency room having a witnessed syncopal episode. His stated that he was standing up and talking on the phone. He became very still. He had his eyes open wide and fell to the floor. He had no seizure activity. No incontinence of bowel or bladder. There was a little bit of time before he woke up. There is a language barrier but it seemed to be about 30 seconds or less, talking to the . The patient remembers standing and talking on the phone. Does not remember the feeling of dizziness, shortness of breath, nausea, or warmth, or any other warning. Reported negative history until sometime about 2-1/2 to 3 months ago where he had another syncopal episode and was taken to the emergency room. He ended up having to be admitted to [facility], he states 7-14 days. Diagnosed with atrial fibrillation. Started on Eliquis and labetalol, and has been on this medication with no trouble. Started having a little dizziness and feeling tired Tuesday. Did progress to where on or Tuesday, he stated he was having dizziness when he walked. He would have to walk very slowly. Yesterday, he sat around a lot and kept being dizzy. The day before admission, he was very dizzy and then on the day of admission, had a syncopal episode while standing. History of hypertension, hyponatremia, atrial fibrillation. The patient states he feels good this morning. No episodes. No chest pain. His chest x-ray on 08/22/2016, minimal right lower lung atelectasis. LAB: Review of his lab from this morning, white count 11,050, hematocrit 46, platelet count 353,000. Sodium 128, potassium 4.3, chloride 88, bicarb 23, BUN 8, creatinine 0.7. Troponin was less than 0.1. ASSESSMENT AND PLAN: 1. Syncope. They held his beta jassi, labetalol. Follow on telemetry. Cardiology to evaluate as well. 2. Hypertension. He has hydralazine intravenous as needed. 3. Hyponatremia. According to family members, he was at [facility] quite some time and he needed to see a offc spec so gave him a little bit of saline and work on his hyponatremia. 4. Hypertension. 5. Atrial fibrillation. He was on labetalol for his hypertension and his atrial fibrillation. His EKG on presentation revealed sinus bradycardia with a rate of 56 and a right bundle. Compared to EKG in May 2016, no significant change found. In May, he did have 2 EKGs. The rate was 64 and 66 with a right bundle. cc: Milton Valladares MD
[2016-08-23] MEDS ORDERED: SAMSCA PO ONE (12:35)
--- NOTE | 2016-08-23 13:06 | CONSULTATION ---
DATE OF CONSULTATION: 08/23/2016 REQUESTING PHYSICIAN: Hospitalist Service REASON FOR CONSULTATION: Syncope. HISTORY OF PRESENT ILLNESS: Mr. Evangelista presented to the hospital on 08/22/2016. He is a 66- year-old [place] male who was previously seen by me on 05/17/2016 for almost similar reason. The patient said that he was on the phone talking to somebody, and all of a sudden he felt very dizzy and lightheaded, and he fell on the floor. He apparently lost consciousness just for a split second, and there were no seizure activities or fits. He did not notice any chest pain or shortness of breath. The patient was brought to the emergency room, and they did a number of EKGs that showed sinus rhythm with right bundle branch block, and there are at least on 2 distinct moments, periods of high grade AV block when he is in sinus, and also there are 2 atrial beats without the corresponding QRS. That happened at 3:46 p.m. Also a 12-lead EKG was able to capture a similar episode where there were 2 atrial beats without corresponding QRS, raising concern for high grade AV block. He has not had any further complaints since his admission. His cardiac enzymes have been checked and they are negative twice. Chest x-ray showed minimal atelectasis of the right lower lung. PAST MEDICAL HISTORY: His history is positive for hypertension. He had prior episode of syncope on 05/17/2016. At that time, he was brought to the hospital because he had been shopping at a grocery store, and then he went down when he was standing by the thimble press operator's place. His cardiac testing at that time showed that he had some degree of aortic stenosis. He had normal ProBNP. Eventually he was discharged. He was supposed to follow up with one of us at the office; however, he did not do that, and he had another syncopal episode which prompted a transfer to [facility] and from there to [place] because of the development of intracranial bleed. An echocardiogram done on 06/18/2016 over at [facility] shows mild to moderate aortic stenosis with a maximum gradient of 46 mmHg, mean gradient of 28 mmHg across the aortic valve. The ejection fraction was normal at 70%. The patient has been told that he has mild carotid disease. The patient has been recently told that he had a focal nonocclusive deep venous thrombosis of the right femoral vein. He was found to be hyponatremic, probably in connection with the intracranial bleed which was treated conservatively. PAST SURGICAL HISTORY: Negative. SOCIAL HISTORY: He is . He is retired from [employer]. He lives with his . He has grownup children. FAMILY HISTORY: Negative. ALLERGIES: None reported. HOME MEDICATIONS: Labetalol 1 tablet twice a day and apixaban 1 tablet twice a day. REVIEW OF SYSTEMS: Noncontributory. Multiple systems were checked. He is basically healthy and has no complaints other than the aforementioned episodes of recurrent syncope. PHYSICAL EXAMINATION: Blood pressure is 141/76, pulse 64, temperature 96.5, respirations 18. He is awake, alert and oriented, no distress. HEENT: Unremarkable. Chest: Clear to auscultation and percussion. Heart: Sounds are regular and rhythmic. No gallop or rub. He does have a systolic ejection murmur of 2 to 3/6 over the aortic area typical of aortic stenosis. Abdomen: Nontender. Soft. No masses. No hepatomegaly. Extremities: Good pulses. No peripheral edema. Neurologic: Moves all 4 extremities and follows commands. DIAGNOSTIC DATA: His sodium today is 128, potassium 4.3, BUN is 8, creatinine 0.7. Hemoglobin is 16.3. IMPRESSION: 1. The patient is presenting with recurrent syncope. This is the third episode, and the previous one was compounded by head trauma and intracranial bleed. 2. Hyponatremia which may be secondary to persistent mass effect in the brain. 3. Poorly controlled hypertension. 4. History of femoral deep venous thrombosis in 06/2016. 5. History of arrhythmia. This is unclear. 6. Mild to moderate aortic stenosis noted clinically and confirmed by echocardiogram performed 2 months ago. RECOMMENDATIONS: At this point in time, I would suggest to obtain a CT scan of the head to make sure that this patient does not have any persistent blood clot in the head like a subdural hematoma. I would also consider referring this patient to [facility] for consideration of a permanent pacemaker implantation. He does demonstrate heart block. I believe he would probably benefit from a dual chamber pacemaker. Further advice will be forthcoming. cc: Jonathan Salcido MD
--- NOTE | 2016-08-23 13:34 | EKG Report ---
Test Performed on : 08/23/2016 11:13:57 AM Test Reason : HTN Blood Pressure : / mmHG Vent. Rate : 068 BPM Atrial Rate : 068 BPM P-R Int : 166 ms QRS Dur : 158 ms QT Int : 444 ms P-R-T Axes : 049 -45 010 degrees QTc Int : 472 ms Normal sinus rhythm. Possible Left atrial enlargement Right bundle branch block Left anterior fascicular block Bifascicular block Cannot rule out Inferior infarct (masked by fascicular block?) , age undetermined Abnormal ECG No previous ECGs available Confirmed by Brendan Pederson MD ([id number]) on 08/25/2016 2:55:02 PM
--- NOTE | 2016-08-23 13:57 | Diag Imaging Result Doc PS360 ---
EXAM: HEAD W/O CONTRAST HISTORY: recent intracranial hemorrhage TECHNIQUE: Dose reduction protocol COMPARISON: 06/18/2016 from [facility] FINDINGS: There is no parenchymal hemorrhage on the current exam. No epidural or subdural hematoma on the current exam. Resolution of the prior hemorrhage in the right frontal region. There is encephalomalacia in the area of the prior hemorrhage. No mass or midline shift. No hydrocephalus. Minimal mucus in the right sphenoid sinus. IMPRESSION: No acute hemorrhage on the current exam. Development of a small area of encephalomalacia in the right frontal lobe on the current study. Electronically signed by Jose Perez 08/23/2016 1:54 PM
[2016-08-24 06:43] LABS: AGAP 17; BUN 20 mg/dL (8-22); CHLORIDE 96 mmol/L (98-107); COSMO 272; POTASSIUM 4.6 mmol/L (3.5-5.1); SODIUM 135 mmol/L (136-145); TCO2 22 mmol/L (25-35)
[2016-08-24 07:31] VITALS: BP 152/68
[2016-08-24] MEDS: ELIQUIS PO SCH (09:08)
[2016-08-24] MEDS: PRINIVIL PO SCH (09:09)
--- NOTE | 2016-08-24 16:23 | DISCHARGE SUMMARY ---
ADMISSION DATE: 08/22/2016 DISCHARGE DATE: 08/24/2016 HISTORY OF PRESENT ILLNESS: The patient presented with a syncopal episode. A 66-year-old with history of hypertension, hyponatremia, atrial fibrillation and syncope. Presented to the emergency room after having a witnessed syncopal episode per his . They stated that he was standing up, talking on the phone, became very stiff and his eyes wide open, and fell to the floor. Had no seizure activity. No incontinence of bowel or bladder. It was a little bit of time before he woke up. There is a language barrier. He speaks Divehi but he does understand Beninese. Probably 30 seconds at least before and less in talking, seemed like it was probably 30 seconds or less that he was down and unconscious according to his . The patient remembers talking on the phone. Does not remember any feeling of dizziness, shortness of breath, nausea or having any warning symptomatology. He had another spell. In fact he has had 2 more spells like this, the last 1 a couple months ago. In the last 3 months he has had 2 spells similar to this. Another time he came to the emergency room, ultimately ended up admitted to [facility], stayed somewhat between 7 and 14 days, diagnosed with atrial fibrillation. Started on Eliquis and labetalol 100 mg b.i.d. He has been on this medication until Tuesday. He started having some dizziness and feeling tired Tuesday and progressed. On and Tuesday he started having dizziness when he walked and he had to walk very slow yesterday. He started to feel dizzy again and then he had a syncopal episode. HOSPITAL COURSE: Was admitted. We found evidence of intermittent 3rd degree AV block, and Cardiology was involved with Dr. Salcido discussed with him the need for pacemaker. He wanted to think about it but did agree. He has had 3 spells of syncope with documented third-degree AV block. Was transferred to [facility] for pacemaker placement. Blood pressure was managed while he was here. He had some hyponatremia that resolved with some fluids. Blood pressure appeared well controlled. He has a history of atrial fibrillation. He was on labetalol for his hypertension and atrial fibrillation. Of course, that was held while he was here. Discharged to [facility]. DISCHARGE MEDICATIONS: He was continued on the medications he was on while here in the hospital. LABORATORY STUDIES: Creatinine he presented with was 0.8 and creatinine was 1.1 when he left. Electrolytes: Sodium was 127 when he presented and 135 on the day of discharge. Chest x-ray:L Minimal right lower lung zone atelectasis, otherwise unremarkable. CT of his head without contrast unremarkable. cc: Milton Valladares MD
== END 2016-08-24 10:42 | disposition short-term general hospital (02) ==
LOC: P.ED 15:18 → SUATTDRO 17:46 → ICU 17:46 → 4N 08-23 18:28
PROVIDERS: ATTEND Emergency Medicine

== ENCOUNTER 2019-04-01 17:21 | Inpatient (IN) ==
[2019-04-01 18:02] LABS: BASO# 0.04 X1000 (0.0-0.2); BASO% 0.3 % (0.0-0.8); EOS# 0.15 X1000 (0.0-0.7); EOS% 1.1 % (0.0-10.0); HEMATOCRIT 43.2 % (42.0-52.0); HEMOGLOBIN 14.3 g/dL (14.0-18.0); IMM GRAN# 0.02 X1000 (0.0-0.04); IMM GRAN% 0.1 % (0.0-0.5); LYMPH# 2.23 X1000 (1.2-3.4); LYMPH% 16.4 % (20.5-51.1); MCH 30.6 PG (27-31); MCHC 33.1 g/dL (33-37); MCV 92.5 FL (81-99); MONO# 1.73 X1000 (0.11-0.59); MONO% 12.7 % (1.7-9.3); MPV 10.8 FL (7.4-10.4); NEUT# 9.41 X1000 (1.4-6.5); NEUT% 69.4 % (42.2-75.2); PLT 314 X1000 (130-400); RBC 4.67 XMIL (4.7-6.1); WBC 13.58 X1000 (4.8-10.8)
[2019-04-01 18:18] LABS: ALBUMIN 4.5 g/dL (3.5-5.0); CALCIUM 9.4 mg/dL (8.8-10.2); CREATININE 1.7 mg/dL (0.7-1.2); POTASSIUM 4.4 mmol/L (3.5-5.1); TOTAL BILIRUBIN 0.6 mg/dL (0.20-1.00); TOTAL PROTEIN 7.9 g/dL (6.3-8.3)
--- NOTE | 2019-04-01 18:20 | EKG Report ---
Test Performed on : 04/01/2019 6:05:09 PM Test Reason : ams Blood Pressure : / mmHG Vent. Rate : 069 BPM Atrial Rate : 069 BPM P-R Int : 160 ms QRS Dur : 152 ms QT Int : 436 ms P-R-T Axes : 046 -20 010 degrees QTc Int : 467 ms Normal sinus rhythm. Right bundle branch block Abnormal ECG When compared with ECG of 03-SEP-2016 18:13, Sinus rhythm. has replaced Electronic atrial pacemaker Unconfirmed Result
[2019-04-01] MEDS ORDERED: NS 1,000 ML IV ONE ×2 (18:53→21:37)
--- NOTE | 2019-04-01 19:22 | PROVIDER DOCUMENTATION ---
HPI-Syncope/Dizziness - General Chief Complaint: Altered Mental Status Stated Complaint: CONFUSED Time Seen by Provider: 04/01/19 18:24 Source: patient, family Allergies/Adverse Reactions: Patient Allergies Allergy/AdvReac Type Severity Reaction Status Date / Time No Known Allergies Allergy Verified 08/22/16 15:29 Home Medications: Home Medication List Medication Instructions Recorded Confirmed Last Taken Type Apixaban [Eliquis] 1 tab PO BID 08/22/16 04/01/19 09/03/16 History Losartan Potassium 1 dose PO DAILY 09/03/16 04/01/19 09/03/16 History ATORVAstatin [Lipitor] 10 mg PO DAILY 04/01/19 04/01/19 Unknown History Amlodipine Besylate 1 tab PO DAILY 04/01/19 04/01/19 Unknown History - History of Present Illness-Syncope/Dizzy Nature of Presenting Problem: Patient is a 69 yom who presents to the ED with family. of pt reports that pt seemed "dazed" and confused last night, then this morning she found pt on the floor by the bed and he had defacated and urinated on himself and was "daze" then as well. Also states pt had bitten his tongue. Pt has no memory of this. He c/o dizziness but denies any other complaints at this time. Recently Seen Here or By Another Healthcare Provider: No Review of Systems - Adult - REVIEW OF SYSTEMS - ADULT Constitutional: reports: no symptoms reported. denies: chills, fever Eyes: reports: no symptoms reported Ears, Nose, Mouth & Throat: reports: no symptoms reported Cardiovascular: reports: no symptoms reported Respiratory: reports: no symptoms reported Gastrointestinal: reports: no symptoms reported Genitourinary: reports: no symptoms reported Musculoskeletal: reports: no symptoms reported Integumentary: reports: no symptoms reported Neurological: reports: see HPI Psychiatric: reports: no symptoms reported Endocrine: reports: no symptoms reported Hematologic/Lymphatic: reports: no symptoms reported Allergic/Immunologic: reports: no symptoms reported All Other Systems: Reviewed and Negative Past History - Adult - PAST MEDICAL HISTORY-ADULT Review of Records: reports: Old Records Reviewed, Nursing Assessment Review, Medications Reviewed Major Childhood Illnesses: reports: denies history Cardiovascular: reports: HTN, other (pacemaker due to bradycardia/syncope) Respiratory: reports: denies history Gastrointestinal: reports: denies history Genitourinary: reports: denies history Musculoskeletal: reports: denies history Neurological: reports: denies history Psychiatric: reports: denies history Endocrine/Immune: reports: denies history Other Conditions: reports: denies history - PRIOR SURGERIES/PROCEDURES Surgical/Procedure History: reports: reviewed, not pertinent - IMMUNIZATION STATUS Childhood Immunizations: See Nurse Assessment Flu Vaccine: See Nurse Assessment - FAMILY HISTORY Family History: reviewed, not pertinent - SOCIAL HISTORY Smoking: non-smoker Physical Exam-General - PHYSICAL EXAM-ADULT Initial Vital Signs Reviewed: Yes - CONSTITUTIONAL General Appearance: alert, no apparent distress. negative: lethargic, slow to respond - EYES Eyes: PERRL/EOMI - HEAD, EARS, NOSE, MOUTH & THROAT HENMT: normocephalic/atraumatic, moist mucous membranes - NECK Neck: non-tender, full range of motion, supple, normal inspection. negative: C- spine tenderness - RESPIRATORY Respiratory: chest non-tender, lungs clear, normal breath sounds, no pleuratic chest pain, no respiratory distress, no accessory muscle use - CARDIOVASCULAR Cardiovascular: normal peripheral pulses, regular rate, rhythm, no edema, no gallop, no murmur - GASTROINTESTINAL (ABDOMEN) Abdominal Exam: normal bowel sounds, non tender, soft - MUSCULOSKELETAL Back Exam: normal inspection Extremity: normal range of motion, non-tender, normal inspection - SKIN Integumentary: normal color, warm/dry. negative: cyanosis, diaphoresis, yolanda dice, mottled, pallor - NEUROLOGIC Neurologic: grossly normal - PSYCHIATRIC Psych/Mental Status: normal mood/affect, normal thought content, normal thought process, oriented x 3 Progress - PLAN OF CARE/RESULTS Progress/Plan/Lab Results: Vital Signs - 8 hr 04/01/19 17:30 04/01/19 18:08 04/01/19 18:54 Temperature 98 F Pulse Rate 75 67 68 Respiratory Rate 18 Blood Pressure 170/79 133/71 133/71 O2 Sat by Pulse Oximetry 98 95 97 Laboratory Results - last 24 hr 04/01/19 04/01/19 04/01/19 17:52 17:52 17:52 WBC 13.58 H RBC 4.67 L Hgb 14.3 Hct 43.2 MCV 92.5 MCH 30.6 MCHC 33.1 RDW Std Deviation 14.0 Plt Count 314 MPV 10.8 H Immature Gran % (Auto) 0.1 Neut % (Auto) 69.4 Lymph % (Auto) 16.4 L [place] % (Auto) 12.7 H Eos % (Auto) 1.1 Baso % (Auto) 0.3 Immature Gran # (Auto) 0.02 Neut # (Auto) 9.41 H Lymph # (Auto) 2.23 [place] # (Auto) 1.73 H Eos # (Auto) 0.15 Baso # (Auto) 0.04 PT INR PTT (Actin FS) Sodium 142 Potassium 4.4 Chloride 104 Carbon Dioxide 24 L Anion Gap 15 BUN 26 H Creatinine 1.7 H Estimated GFR/1.73 m2 40 BUN/Creatinine Ratio 15 Glucose 90 Calculated Osmolality 287 Calcium 9.4 Magnesium 2.6 Total Bilirubin 0.60 AST 122 H ALT 37 Alkaline Phosphatase 63 Troponin T High Sens Total Protein 7.9 Albumin 4.5 Globulin 3.0 Albumin/Globulin Ratio 1.0 Urine Source Urine Color Urine Turbidity Urine pH Ur Specific [place] Urine Protein Ur Glucose (Stick) Ur Ketones (Stick) Urine Blood Urine Nitrite Urine Bilirubin Urobilinogen Dipstick Urine Leukocytes Urine WBC (Auto) Urine RBC (Auto) U Epithel Cells (Auto) Urine Bacteria (Auto) Urine Crystals Small Round Cells Urine Casts Urine Yeast-like Cells 04/01/19 04/01/19 04/01/19 17:52 17:52 19:41 WBC RBC Hgb Hct MCV MCH MCHC RDW Std Deviation Plt Count MPV Immature Gran % (Auto) Neut % (Auto) Lymph % (Auto) [place] % (Auto) Eos % (Auto) Baso % (Auto) Immature Gran # (Auto) Neut # (Auto) Lymph # (Auto) [place] # (Auto) Eos # (Auto) Baso # (Auto) PT 13.7 INR 1.00 PTT (Actin FS) 40.3 Sodium Potassium Chloride Carbon Dioxide Anion Gap BUN Creatinine Estimated GFR/1.73 m2 BUN/Creatinine Ratio Glucose Calculated Osmolality Calcium Magnesium Total Bilirubin AST ALT Alkaline Phosphatase Troponin T High Sens 16 Total Protein Albumin Globulin Albumin/Globulin Ratio Urine Source CLEAN CATCH Urine Color YELLOW Urine Turbidity CLEAR Urine pH 5.5 Ur Specific [place] 1.027 Urine Protein 50 A Ur Glucose (Stick) NEGATIVE Ur Ketones (Stick) TRACE A Urine Blood SMALL A Urine Nitrite NEGATIVE Urine Bilirubin NEGATIVE Urobilinogen Dipstick NORMAL Urine Leukocytes NEGATIVE Urine WBC (Auto) <10 Urine RBC (Auto) <10 U Epithel Cells (Auto) >10 A Urine Bacteria (Auto) 1+ Urine Crystals NONE SEEN Small Round Cells Not Reportable Urine Casts GRANULAR PRESENT Urine Yeast-like Cells NONE SEEN Orders Category Date Time Status Cardiac Monitoring DIRECTED Care 04/01/19 18:53 Active Nursing- Obtain EKG ONCE Care 04/01/19 18:54 Active CHEST-2 VIEWS [RAD] Stat Exams 04/01/19 18:[address] HEAD W/O CONTRAST [CT] Stat Exams 04/01/19 18:53 Completed CBC WITH ELECTRONIC DIFF [HEME] Stat Lab 04/01/19 17:52 Completed COMPREHENSIVE METABOLIC PANEL [CHEM] Stat Lab 04/01/19 17:52 Completed MAGNESIUM [CHEM] Stat Lab 04/01/19 17:52 Completed PT [PROTIME WITH INR] [COAG] Stat Lab 04/01/19 17:52 Completed PTT [COAG] Stat Lab 04/01/19 17:52 Completed TROPONIN T HIGH SENSITIVITY Stat Lab 04/01/19 17:52 Completed UA NIMS W/REFLEX CULT [URINALYSIS] Stat Lab 04/01/19 19:41 Completed URINE MANUAL MICROSCOPIC [URINALYSIS] Stat Lab 04/01/19 19:41 Completed 0.9% Sodium Chloride Inj [Ns] 1,000 ml Med 04/01/19 18:53 Active IV 100 mls/hr Generalized Adult Illness >60 Stat Oth 04/01/19 17:46 Ordered EKG [EKG] Stat Ther 04/01/19 17:46 Draft EKG [EKG] Stat Ther 04/01/19 18:53 Ordered Result Diagrams: 04/01/19 17:52 04/01/19 17:52 - REASSESSMENT Reassessment #1 Time Reassessed: 21:34 Status: other (Pt initially stated he wanted to sign out AMA, then changed his mind and is now in agreement with admission plan.) Reassessment #2 Time Reassessed: 03:38 Status: worsening (I was called to bedside just now for "CRITICAL ASSIST TEAM," as patient had an episode of tachycardia lasting about 1-2 minutes and then he began with snoring respirations. Though he was not witnessed having a seizure, on my arrival, patient is most definitely post-ictal, incontinent of stool, lethargic but rousable and confused/combative when roused. Moves all 4 extremities and w/d to pain. Vitals normal per NS. Sats 94% on RA. Ativan 1mg and Keppra 1.5gm ordered by me IVPB. Dr. Hunt notified by me and nursing staff) - XRAY 1 XRAY Study: Chest ([facility] - [address], [address], [place] [address] [facility] - [address] [place], [place] [id number] Department of Imaging Patient: REYNALDO DE DIOS Date: 04/01/19#: [id number] : 1950DM Status: REG [facility]#: [id number] Age/Sex: 69/MRoom/Bed: Loc: P.ED Ordering Physician: Marilee Roach Family Physician: None,PCP Reason for Procedure: possible seizure, AMS ___ Signed CHEST-2 VIEWS - 04/01/2019 INDICATION: possible seizure, AMS COMPARISON: 09/03/2016 FINDINGS: Stable left-sided dual-chamber pacemaker. The lungs are clear. Heart size is normal. No pneumothorax or pleural effusion. IMPRESSION: Negative exam. Electronically signed by Chester Ramirez 04/01/2019 8:21 PM 04/01/192020 Interpreting Physician: Chester Ramirez MD Dictated Date/Time: 04/01/192020 cc: Marilee Roach; None,PCP) - CT/MRI 1 CT Study: Head ([facility] - [address], [address], [place] [address] [place] [id number] [place] [address] Department of Imaging Patient: REYNALDO DE DIOS Date: 04/01/19#: [id number] : 1950ADM [facility] [id number] Age/Sex: 69/MRoom/Bed: Loc: P.ED Ordering Physician: Marilee Roach Family Physician: None,PCP Reason for Procedure: possible seizure Signed CT HEAD W/O CONTRAST - 04/01/2019 INDICATION: possible seizure COMPARISON: 08/23/2016 FINDINGS: There is a stable old infarct at the anterior right frontal lobe. No intracranial mass or hemorrhage. The skull is intact. The sinuses are clear. IMPRESSION: No acute disease or change from prior. This exam was performed using automated exposure control, adjustment of mA or kV according to patient size, and/or use of iterative reconstruction technique Electronically signed by Chester Ramirez 04/01/2019 8:02 PM 04/01/192001 Interpreting Physician: Chester Ramirez MD Dictated Date/Time: 04/01/191953 cc: Marilee Roach; None,PCP) - CONSULTS/PCP/HOSPITALIST Notification #1 *Consult/PCP/Hospitalist*: Dr. Hunt Time Discussed: 21:34 Reason/Comments: admission- AMS Consult Disposition: Admit Departure - Departure Date of Disposition Decision: 04/01/19 Time of Disposition Decision: 21:34 DIAGNOSIS: Generalized tonic-clonic seizure AMS (altered mental status) Qualifiers: Altered mental status type: unspecified Qualified Code(s): R41.82 - Altered mental status, unspecified Disposition: ADMITTED INPATIENT 09 Certified Medical Emergency: Emergent Condition: Stable - Critical Care Note This patient required my direct & personal management of CC.: No Attestation - Physician/ MANJINDER Attestation Patient care was provided by Advanced Practice Provider:: Yes Advanced Practice Provider:: Marilee Roach Advanced Practice Provider documentation review:: The Mid-level provider documentation, treatment plan and medical decision making was reviewed by the physician who agrees with all treatment and medical decision making by the MLP. The physician spent face to face time with patient:: Yes (Spoke with Marilee during ED stay, then seen and examined by me on the floor.) Advanced Practice Provider documentation review:: Supervising physician onsite and consulted in the evaluation and care of this patient. The physician did have a face to face encounter with the patient.
[2019-04-01 19:40] LABS: PROTIME 13.7 Seconds (11.0-16.0)
[2019-04-01 19:41] LABS: PTT 40.3 Seconds (22.3-41.8)
[2019-04-01 19:47] LABS: URINE SOURCE CLEAN CATCH
[2019-04-01 19:49] LABS: BILIRUBIN URINE NEGATIVE (NEGATIVE); BLOOD URINE SMALL (NEGATIVE); COLOR YELLOW; GLUCOSE URINE NEGATIVE (NEGATIVE); KETONE URINE TRACE mg/dL (NEGATIVE); LEUKOCYTES URINE NEGATIVE (NEGATIVE); NITRITE URINE NEGATIVE (NEGATIVE); PH URINE 5.5; PROTEIN URINE 50 mg/dL (NEGATIVE); SP GRAVITY URINE 1.027; TURBIDITY URINE CLEAR (CLEAR); UROBILINOGEN URINE NORMAL (NORMAL)
[2019-04-01 20:01] LABS: UR EPITHELIAL CELLS >10 /HPF (<10); URINE BACTERIA 1+ /HPF; URINE CASTS GRANULAR PRESENT; URINE CRYSTALS NONE SEEN; URINE RBC <10 /HPF (<10); URINE WBC <10 /HPF (<10); URINE YEAST NONE SEEN
--- NOTE | 2019-04-01 20:04 | Diag Imaging Result Doc PS360 ---
CT HEAD W/O CONTRAST - 04/01/2019 INDICATION: possible seizure COMPARISON: 08/23/2016 FINDINGS: There is a stable old infarct at the anterior right frontal lobe. No intracranial mass or hemorrhage. The skull is intact. The sinuses are clear. IMPRESSION: No acute disease or change from prior. This exam was performed using automated exposure control, adjustment of mA or kV according to patient size, and/or use of iterative reconstruction technique Electronically signed by Chester Ramirez 04/01/2019 8:02 PM
--- NOTE | 2019-04-01 20:24 | Diag Imaging Result Doc PS360 ---
CHEST-2 VIEWS - 04/01/2019 INDICATION: possible seizure, AMS COMPARISON: 09/03/2016 FINDINGS: Stable left-sided dual-chamber pacemaker. The lungs are clear. Heart size is normal. No pneumothorax or pleural effusion. IMPRESSION: Negative exam. Electronically signed by Chester Ramirez 04/01/2019 8:21 PM
[2019-04-01] MEDS ORDERED: ZOFRAN IV PRN (21:37)
[2019-04-01] MEDS ORDERED: TYLENOL PO PRN (21:37)
[2019-04-02] MEDS ORDERED: ATIVAN IV ONE (03:31)
[2019-04-02] MEDS ORDERED: ATIVAN ONE (03:37)
[2019-04-02] MEDS ORDERED: KEPPRA 1,500 MG in NS 100 ML IV SCH (03:45)
[2019-04-02] MEDS: KEPPRA 500 MG/NS 500 MG/100 ML IVPB IV SCH ×3 (04:00→04:30)
[2019-04-02] MEDS ORDERED: ZOFRAN IV PRN (05:31)
[2019-04-02] MEDS ORDERED: TYLENOL PO PRN (05:32)
[2019-04-02] MEDS ORDERED: NS 1,000 ML IV ONE (06:00)
[2019-04-02] MEDS ORDERED: ATIVAN IV PRN (09:11)
[2019-04-02] MEDS ORDERED: APRESOLINE IV PRN (09:13)
[2019-04-02] MEDS: NS 1,000 ML IV SCH ×2 (09:15→18:14)
[2019-04-02 09:28] LABS: BASO% 0.9 % (0.0-0.8); EOS# 0.18 X1000 (0.0-0.7); EOS% 1.7 % (0.0-10.0); HEMOGLOBIN 15.7 g/dL (14.0-18.0); IMM GRAN# 0.03 X1000 (0.0-0.04); IMM GRAN% 0.3 % (0.0-0.5); LYMPH# 1.74 X1000 (1.2-3.4); MCH 30.7 PG (27-31); MCHC 32.7 g/dL (33-37); MCV 93.8 FL (81-99); MONO# 1.11 X1000 (0.11-0.59); MONO% 10.2 % (1.7-9.3); MPV 11.8 FL (7.4-10.4); NEUT# 7.71 X1000 (1.4-6.5); NEUT% 70.9 % (42.2-75.2); PLT 312 X1000 (130-400); RBC 5.12 XMIL (4.7-6.1); RDW 14.4 % (11.5-14.5); WBC 10.87 X1000 (4.8-10.8)
--- NOTE | 2019-04-02 11:46 | HISTORY AND PHYSICAL ---
PRIMARY CARE PROVIDER: Dr. Gupta. CHIEF COMPLAINT: Seizure. HISTORY OF PRESENT ILLNESS: Mr. Suresh Billy is a 69-year-old male who speaks mixed Dominican Malaysian. Has a history of seizures that apparently started 3 years ago or most likely around the time that he had a right frontal hemorrhagic stroke in the past, which was also in 2017. He has not been on any medications for seizures. He actually came in August 2016 with a syncopal spell, and this was post hemorrhagic stroke as well, so it could be a possibility that these seizures are the remnants of the old hemorrhagic CVA. According to ER note, he had presented to the emergency department yesterday, had seemed dazed and confused, was found on the floor by his who had urinary and bowel incontinence, bit his tongue on the left. The patient apparently had no memory of that. Did have some complaints of dizziness. Currently, is at the bedside. She states that actually the seizures, he has had 4 since Tuesday night. He had 1 Tuesday night and 3 last night with the last one being around 11 p.m. It was difficult to obtain the length of time the seizures lasted and what they appeared to be like. He also has a history of atrial fibrillation with a pacemaker. He is on Eliquis for that. CT here does not show any new CVA or hemorrhage, so we are going to get him started on an antiepileptic drug treatment. Most likely will need this permanently. He does have some either mild acute kidney injury or he has got a chronic kidney disease. PAST MEDICAL HISTORY: 1. Hemorrhagic stroke, right frontal lobe in 2017. 2. Seizure disorder, also started in 2017. He had a seizure then but no seizures until now when he has had 4 seizures. 3. Paroxysmal atrial fibrillation, has a pacemaker. 4. Hyperlipidemia. 5. Hypertension. SURGICAL HISTORY: Permanent pacemaker. SOCIAL HISTORY: Denies tobacco, alcohol or illicit drug use. He lives with his . He is retired from [employer]. FAMILY HISTORY: Denies. ALLERGIES: No known drug allergies. HOME MEDICATIONS: 1. Amlodipine besylate 10 mg p.o. daily. 2. Eliquis 2.5 mg p.o. twice daily. 3. Lipitor 10 mg p.o. daily. 4. Losartan potassium 100 mg p.o. daily. REVIEW OF SYSTEMS: Difficult to obtain, but 10 point review of systems are complete and all were negative those mentioned above HPI. There is denial of any pains, headaches, shortness of breath, fevers, chills, nausea, vomiting, or diarrhea. He denied all of this. PHYSICAL EXAMINATION: VITAL SIGNS: Temperature 99.1 degrees, heart rate 73, respiratory rate 21, blood pressure 140/49, O2 saturation 96% on room air. GENERAL: Mr. Suresh Billy is a 69-year-old male. He is in no acute distress. He is able to answer most questions appropriately. HEENT: Atraumatic, normocephalic. Left facial droop noted. Tongue midline but definitely some older bite gregorio along the left side of the tongue. Oral airway is moist. NECK: Trachea midline. CARDIOVASCULAR: S1, S2. Regular rate and rhythm. No rubs, gallops, murmurs. Trace lower extremity edema. +2 dorsalis and radial pulses. Negative JVD or carotid bruits. PULMONARY: Clear to auscultate bilateral breath sounds. No accessory muscle use or work of breathing noted. ABDOMEN: Soft, nontender, nondistended. Positive bowel sounds x4. EXTREMITIES: Moves all extremities equally. SKIN: Warm, dry, intact. NEUROLOGIC: Oriented x3. Alert, followed commands. Sensory is intact. SKIN: Warm, dry, intact. LABORATORY DATA: White blood cells 10,000, hemoglobin 15, hematocrit 48, platelet count 312,000. INR is 1.00, PTT is 40.3. Sodium 142, potassium 4.4, BUN 26, creatinine 1.7, glucose 97, calcium 9.4, magnesium 2.6, bilirubin 0.60, AST 122, ALT 37. Troponin 16. Albumin is 4.5. Urinalysis: 50 protein, trace ketones, small blood, 1+ bacteria. IMAGING: Chest x-ray negative exam. Head CT: No acute disease or change from prior. EKG: Normal sinus rhythm, right bundle branch block, rate is 69, QTc is 467. ASSESSMENT/PLAN: 1. Seizure disorder, most likely remnants of an old hemorrhagic CVA he had in 2017. reports he had seizure back in 2017. We having an admission of him with syncope back then. Could have been seizure then as well. He is not on any antiepileptic drugs at home. We will go ahead and get that started. We will consult Neurology. Unable to perform an MRI as he has a pacemaker. He also will have p.r.n. Ativan. Currently, he is NPO except medications, but since his last seizure was around 11, we will go ahead and start him on a clear liquid and advance. Tongue is midline. However, he does have a chronic left facial droop. Seizure precautions in intensive care unit. 2. History of old right frontal hemorrhagic stroke in 2017. 3. Hyperlipidemia. Continue statin. 4. Hypertension. Added p.r.n. hydralazine. Holding the other 2 to determine whether he has acute kidney injury or chronic kidney disease. 5. Acute kidney injury versus chronic kidney disease stage 3. In 2017, he had normal kidney function. It could be that he has got some dehydration, so he is getting some IV fluids for now and currently a new CMP is pending. 6. Paroxysmal atrial fibrillation with a pacemaker defibrillator. Currently, the above rhythm is normal sinus rhythm. Low-dose Eliquis is resumed. 7. Deep venous thrombosis prophylaxis. Again, he is on Eliquis. Dictated by ANU Marmolejo for Evin Sauer MD cc: ANU Marmolejo MD
--- NOTE | 2019-04-02 14:31 | EEG REPORT ---
DATE: 04/02/2019 REFERRING PHYSICIAN: Evin Sauer MD RN FIELD CASE MANAGER: Deidra Pratt BACKGROUND INFORMATION/TECHNIQUE: This is a digitally recorded portable routine EEG with video. HISTORY: A 69-year-old male presenting with seizures. EEG is ordered to detect evidence of seizures. MEDICATIONS: Levetiracetam, lorazepam. EEG FINDINGS: A posterior dominant alpha rhythm is not seen. The background at maximal alertness consists of mixed alpha, beta and some theta range frequencies. Excessive beta frequency is seen throughout the study. Occasional to intermittent, 1 to 2 seconds bursts of semi arrhythmic and rhythmic delta activity is seen during the study, bilaterally, at times more prominent in the left hemisphere. No epileptiform discharges. No seizures. Hyperventilation was not performed. Photic stimulation does not alter the record. The patient becomes drowsy but stage N2 sleep is not seen. EKG demonstrates regular RR intervals. IMPRESSION AND CLINICAL CORRELATION: 1. Abnormal routine EEG due to mild diffuse slowing suggestive of a mild nonspecific encephalopathy. 2. No definite epileptiform discharges or seizures seen on the current study. This does not rule out an underlying seizure disorder. Excessive beta frequency is typically a medication effect, more often in the setting of benzodiazepines. Clinical correlation recommended. cc: MD Evin Merritt MD [facility]
[2019-04-02 15:21] LABS: AGAP 10; ALBUMIN 3.4 g/dL (3.5-5.0); ALKALINE PHOSPHATASE 52 U/L (32-122); BUN 18 mg/dL (8-22); CALCIUM 8.5 mg/dL (8.8-10.2); CHLORIDE 104 mmol/L (98-107); COSMO 277; CREATININE 1.1 mg/dL (0.7-1.2); ESTIMATED GFR > 60; GLUCOSE 97 mg/dL (70-104); GOT 80 U/L (10-34); GPT 32 U/L (10-44); MAGNESIUM 2.2 mg/dL (1.5-2.7); POTASSIUM 3.9 mmol/L (3.5-5.1); SODIUM 138 mmol/L (136-145); TCO2 24 mmol/L (25-35); TOTAL BILIRUBIN 0.61 mg/dL (0.20-1.00); TOTAL PROTEIN 6.7 g/dL (6.3-8.3)
[2019-04-02 15:24] LABS: CK TOTAL 3786 U/L (24-204)
[2019-04-02] MEDS: KEPPRA 1,500 MG in NS 100 ML IV SCH (16:11)
--- NOTE | 2019-04-02 19:01 | HISTORY AND PHYSICAL ---
ADDENDUM: I have seen and examined Mr. Billy today. The granddaughter and the were both at the bedside at the time of the encounter. Mr. Billy himself is not able to give a very detailed history as to what happened to him. However, the said that Tuesday she had Mr. Billy come out of his room, went to the kitchen which was about 4 in the morning, and then she did not hear from him again until about 6 o'clock. She went to check on him and Mr. Billy was on the floor, not very responsive, not very coherent. At that time she realized that Mr. Billy had urinated on himself and also had defecated and that there was a lot of blood on the left side of his face. She tried to help him, but he she could not. She could not raise him up, so she used a ladder and Mr. Billy was able to hold onto the ladder and got up himself. He went to lay down the bed. An hour later, he came and helped her to clean the urine and feces that was on the floor. After that, he went back to sleep again. After that, the granddaughter came to the house around 3 o'clock and according to the granddaughter she did not even realize that there was anything wrong with her grandfather throughout the day. Mr. Billy' son came around 7 o'clock and when the mother told the son what happened earlier on the son decided that he should come to the emergency room . Initially Mr. Billy was sent to was sent to [facility]. It appears that the patient had about 3 possible seizures, although no convulsive movements were seen but it was documented the patient was definitely postictal, incontinent of stool, lethargic, but arousable and confused. He was combative when aroused. Over here, he has not been found to have any seizures. He was loaded at [facility] and he has been continued with Keppra 1500 every 12 hours since then. Mr. Billy has a history of cardiac arrhythmia, questionable atrial fibrillation and bradycardia. He is status post pacemaker. According to the , he has had multiple episodes of syncope and blacking out. She did show me 3 different occasions in 2017 where he had loss of consciousness and at some point in 2017 in [facility] [place] they decided that his blacking out was due to cardiac arrhythmia and pacemaker was put. Since then in 2017 he has not had any more blacking out or any other spells until what happened yesterday. PHYSICAL EXAMINATION: VITAL SIGNS: His current vital signs are all stable. GENERAL: His physical exam for most part is completely unremarkable. He is now awake. He is alert. He is conversational. He does not have any focal deficit and he was actually requesting to know when he will be discharged. DIAGNOSTIC DATA: His CT scan shows no acute changes. His chest x-ray shows a dual-chamber pacemaker, but no acute cardiopulmonary disease. ASSESSMENT: 1. Seizure disorder, presumably new onset. The patient has been loaded and started on Keppra. EEG seems to have been unremarkable except for generalized slowing of waves, but no epileptiform discharges. Unfortunately, we cannot do an MRI because of the pacemaker. The patient is pending Neurology evaluation today. 2. History of atrial fibrillation/bradycardia, status post pacemaker. He is also on Eliquis for stroke prophylaxis. 3. Hypertension, controlled. 4. Acute kidney injury, resolved. Please refer to the details of the history and physical that has been dictated by the HARBOUR MASTER in the chart. I have discussed the plan with her. I have also discussed my findings and the plans with Mr. Billy and the as well as granddaughter today. cc: Evin Sauer MD
[2019-04-02 19:45] LABS: UR CREAT RANDOM 30.1 mg/dL (14-26)
[2019-04-02] MEDS: LIPITOR PO SCH (20:11)
[2019-04-02] MEDS: ELIQUIS PO SCH (20:11)
--- NOTE | 2019-04-02 21:29 | NEUROLOGY CONSULTATION ---
DATE: 04/02/2019 REASON FOR CONSULTATION: Seizure. HISTORY OF PRESENT ILLNESS: This is a 69-year-old male with history of reported right frontal hemorrhage in 2017, pacemaker who came to the hospital yesterday evening for evaluation of possible seizures. History is from the patient and his attentive son and his . They report that the patient was found on the floor, incontinent of urine and stool, and he was bleeding some from the mouth. He was confused. This occurred two days ago. helped him up, and he stayed confused such that she became a bit worried. Ultimately they brought him into the hospital yesterday evening. Per chart review, while in the emergency department around 3 a.m., there was a critical assist team called to the patient's room as the patient had an episode of tachycardia lasting 1 or 2 minutes and then subsequently had snoring respirations. It was thought that he likely had an unwitnessed seizure because it was felt he was postictal, and he was incontinent of stool. It looks as though he was given 1 mg of Ativan and shortly thereafter had another seizure that may have been witnessed. After that, he was loaded with 1500 mg of Keppra it appears. Head CT did not show acute findings but did show old encephalomalacia in the anterior right frontal lobe. There have not been further seizure events. reports that a few years ago they were in [place], and the patient fell and hit his head hard on the concrete. They took him to [facility], and it was noted that he had bleeding in the brain. She believes he was there for roughly a week or a little more. We do not have records. He had that initial fall and subsequently had repeated falls for some time. He ultimately received a pacemaker, and they state he had not had falls afterwards. His falls were described as he would lose consciousness. There was no shaking. There was not other feature that I could tell. has never seen him have a seizure before. He has not had previous falls associated with incontinence or tongue biting before just now. PAST MEDICAL HISTORY: 1. Sounds like he had a hemorrhage a few years ago. This was managed at [facility]. This may have been a traumatic hemorrhage, but we do not have records. Likely right frontal. 2. Paroxysmal atrial fibrillation. 3. Pacemaker. 4. Hyperlipidemia. 5. Hypertension. FAMILY HISTORY: No seizures. SOCIAL HISTORY: No tobacco, alcohol or illicits. He lives with his . He is retired. ALLERGIES: No known drug allergies listed. HOME MEDICATIONS: Include amlodipine, Eliquis, Lipitor, losartan. REVIEW OF SYSTEMS: Balance of 12 conducted and otherwise negative except that detailed in the HPI. PHYSICAL EXAMINATION: Vital Signs: Afebrile, blood pressure current 169/74, pulse 60s, respirations 21, 100% on room air. Neurological: Mr. Billy is supine in bed. He is awake and alert and oriented. Speech appears fluent. He speaks Thai and Faroese. No language disturbance on brief bedside testing, follows simple commands. He is attentive and spontaneous. Pupils are equal, round, and reactive. Gaze conjugate. Ocular movements full. Blinks to threat. Face with left lower facial asymmetry with larger smile. It is less noticeable when his effort to smile is not good. He reports preserved sensation on the face that is symmetric. Tongue is midline. Palate elevates symmetrically. He can hear. Shoulder shrug is full. There is some pain to the left shoulder. Power appears preserved in the arms and legs and equal. Sensation is reported intact in the arms and legs and symmetric with the exception of the left thigh. He reported some mild diminished sensation, but that was not definitely present in the lower part of the leg. He had a difficult time relaxing for reflexes. It appeared 1+ at the wrists. Trace to 1+ at the ankles. No clonus. Plantar response was downgoing. Inbqos-gb-[id number] intact. Rapid alternating movements. Symmetric preserved. I did not test his gait. DIAGNOSTICS: Head CT noncontrast personally reviewed. No acute findings. There was a stable area of encephalomalacia in the anterior right frontal lobe. EEG personally reviewed showing mild diffuse slowing suggestive of a mild nonspecific encephalopathy. There was not definite epileptiform discharges or seizures on the current study. Labs reviewed in the chart. White count of 13.5, now 10.8, normal sodium, BUN 26, now 18, creatinine 1.7, now 1.1. Calcium of 8.5. Normal magnesium. AST 122, now 80, ALT 37, now 32. ASSESSMENT AND PLAN: Likely seizures. Etiology is uncertain. It is possible it is related to prior hemorrhage as there is encephalomalacia on the CT, but if that is the case I would expect that he has had seizures possibly unwitnessed or unnoticed prior to just now. There is some left lower facial weakness, which may be related to his prior event, but family has not noticed it before. I agree with Sarah and would continue the current dose for now. Side effects were discussed. We might consider repeating the head CT after 24 hours. Seizure precautions. The patient should not be driving. Thank you for the consultation. cc: Britt Gibbs MD MTDD
[2019-04-03] MEDS: KEPPRA 1,500 MG in NS 100 ML IV SCH (03:22)
[2019-04-03 05:08] LABS: BASO# 0.11 X1000 (0.0-0.2); BASO% 1.1 % (0.0-0.8); EOS# 0.35 X1000 (0.0-0.7); EOS% 3.3 % (0.0-10.0); HEMATOCRIT 44.8 % (42.0-52.0); HEMOGLOBIN 14.7 g/dL (14.0-18.0); IMM GRAN# 0.02 X1000 (0.0-0.04); IMM GRAN% 0.2 % (0.0-0.5); LYMPH# 2.15 X1000 (1.2-3.4); LYMPH% 20.6 % (20.5-51.1); MCHC 32.8 g/dL (33-37); MCV 94.5 FL (81-99); MONO# 1.06 X1000 (0.11-0.59); MONO% 10.1 % (1.7-9.3); MPV 11.4 FL (7.4-10.4); NEUT# 6.77 X1000 (1.4-6.5); NEUT% 64.7 % (42.2-75.2); PLT 264 X1000 (130-400); RBC 4.74 XMIL (4.7-6.1); WBC 10.46 X1000 (4.8-10.8)
[2019-04-03] MEDS: NS 1,000 ML IV SCH ×2 (05:13→17:51)
[2019-04-03 05:30] LABS: AGAP 12; ALBUMIN 3.7 g/dL (3.5-5.0); ALKALINE PHOSPHATASE 59 U/L (32-122); BUN 11 mg/dL (8-22); CALCIUM 8.8 mg/dL (8.8-10.2); CHLORIDE 105 mmol/L (98-107); COSMO 277; CREATININE 0.9 mg/dL (0.7-1.2); ESTIMATED GFR > 60; GLUCOSE 93 mg/dL (70-104); GOT 76 U/L (10-34); GPT 33 U/L (10-44); MAGNESIUM 2.1 mg/dL (1.5-2.7); POTASSIUM 3.8 mmol/L (3.5-5.1); SODIUM 139 mmol/L (136-145); TCO2 22 mmol/L (25-35); TOTAL PROTEIN 7.4 g/dL (6.3-8.3)
--- NOTE | 2019-04-03 07:42 | EKG Report ---
Test Performed on : 04/03/2019 06:49:59 AM Test Reason : seizures Blood Pressure : / mmHG Vent. Rate : 060 BPM Atrial Rate : 060 BPM P-R Int : 212 ms QRS Dur : 162 ms QT Int : 466 ms P-R-T Axes : -09 -21 007 degrees QTc Int : 466 ms Atrial-paced rhythm with prolonged AV conduction Right bundle branch block Abnormal ECG When compared with ECG of 01-APR-2019 18:05, (Unconfirmed) Electronic atrial pacemaker has replaced Sinus rhythm. Confirmed by Bg GARCIA, Brendan Alan ([id number]) on 04/05/2019 7:28:28 AM
[2019-04-03] MEDS: ELIQUIS PO SCH ×2 (08:04→20:00)
--- NOTE | 2019-04-03 16:13 | NEUROLOGY PROGRESS NOTE ---
DATE: 04/03/2019 SUBJECTIVE: No major overnight events. Patient has not had recurrent clinically recognized seizure. He has been tolerating the Keppra. No current complaints. OBJECTIVE: Vital signs: He is afebrile. Blood pressure 170/85, pulse 71. General: He is supine in bed with head of bed elevated. He is awake looks a little bit sleepy but reasonably attentive. He does not drift to sleep during our encounter. He follows simple commands. Neurologic: Pupils are equal. Gaze is conjugate. With repeated testing, it does appear that the he does have a symmetric smile. It was questionable yesterday and I believe it depends on his effort. He is self-conscious about his teeth and does not like to show them. Power is preserved in the limbs an equal. LABS: Reviewed in the chart. Creatinine 1.7 on admission, current 0.9. MEDICATIONS: Reviewed in the chart and include levetiracetam 1500 mg. ASSESSMENT AND PLAN: Seizures on presentation. Currently appear to be under control with current dose of levetiracetam, which I would recommend continuing at this time. He cannot have MRI due to his pacemaker. We might consider head CT with contrast in the future. Seizure precautions should be followed. He should not be climbing to heights, operating heavy machine, swimming or bathing alone. He should not be performing tasks with which he would hurt himself or others should he have a seizure. He should not be driving. cc: Britt Gibbs MD
--- NOTE | 2019-04-03 16:22 | PROGRESS NOTE ---
DATE: 04/03/2019 SUBJECTIVE: I saw Mr. Billy early on this morning. He said he was feeling a lot better. He had not had any more seizures and we had actually discharged him. However, the discharge nurse went to evaluate him late this afternoon, and he told the nurse that he has been having some dizzy spells and that he has been seeing things upside down. Early he told his that the was walking on the lea. I came back to recheck on him. He says he feels okay, but every now and then he has the sensation that things are floating in the air and that he has he seen the television upside down. His visual exam for the most part seems to be unremarkable OBJECTIVE: Current vitals blood pressure is 149/63, pulse of 68, respirations 23, temperature is 98.3 degrees.General: Mr. Billy is a 69-year-old gentleman. He is in bed in no distress. Mucosa is pink and moist. Anicteric. Acyanotic. Neck: Supple. Chest: Clear to auscultation. No crepitations. No rhonchi. Cardiovascular: Regular rate and rhythm. No murmurs, no rubs, no gallops. Abdomen: Soft, nontender. Bowel sounds present. NEUROLOGICAL: PROCUREMENT CLERK patient is awake, alert, and oriented. The patient does not have any visual field deficit and currently his neurological exam is unremarkable. Extremities: No pedal edema. DIAGNOSTIC DATA: A CT scan has been unremarkable as well as the EEG. ASSESSMENT: 1. Altered mental status on presentation with prolonged postictal state associated with tongue biting and bowel and urinary incontinence, all suggestive of seizure episodes. The patient has been started on Keppra. He has been observed more than 24 hours during the hospital course. There have been no seizures; however, this afternoon Mr. Billy well as refers to be seeing things upside down and the is walking on the lea. I think this is potentially a side effect of the Keppra. I have discontinued that and started him on Trileptal and will be waiting for neurology to evaluate him. 2. History of atrial fibrillation/bradycardia, status post pacemaker. He is on Eliquis for stroke prophylaxis. 3. Hypertension, controlled. 4. Acute kidney injury, resolved. PLAN: In general, we are going to withhold the discharge. We are going to transfer Mr. Billy from the ICU to the medical floor. I have changed his antiseizure medication to oxcarbazepine. We will be following up with further recommendations from Neurology. cc: Evin Sauer MD
[2019-04-03] MEDS: LIPITOR PO SCH (20:01)
[2019-04-03] MEDS: TRILEPTAL PO SCH (20:02)
[2019-04-04] MEDS: NS 1,000 ML IV SCH ×2 (06:56→13:48)
[2019-04-04] MEDS: TRILEPTAL PO SCH (09:01)
[2019-04-04] MEDS: ELIQUIS PO SCH (09:01)
--- NOTE | 2019-04-04 11:51 | NEUROLOGY PROGRESS NOTE ---
DATE: 04/04/2019 Dr. Gibbs saw Mr. Billy for initial neurology evaluation. He presented with history suggesting seizure and had witnessed episode consistent with seizure. He was started on levetiracetam and did not have further seizure recognized. He seemed to be tolerating levetiracetam but then reported some odd out-of-body symptoms. For example, he had a sense that he was hovering overhead, looking down, seeing what was going on in his hospital room. There might have been some more specific vision disturbance, such as things in his vision appearing suddenly upside down and then rapidly correcting. There was not clear focal neurologic feature. There was not altered awareness or unconsciousness or other seizure-like feature. Levetiracetam was stopped. He was started on oxcarbazepine 150 mg b.i.d. and he has tolerated a few doses of that. He has not had any further vision symptoms or out-of-body symptoms. Explanation for seizure is not certain but there is a possibility this is a posttraumatic seizure disorder. There is reported 2017 head injury with right frontal cerebral hemorrhage. Imaging here this admission shows no new bleeding, no acute lesion. He presented with elevated AST, which has corrected. Other lab has been unremarkable. We do not have urine drug screen this admission. In light of his stable course, I would continue oxcarbazepine. I have ordered that dose increased to 300 mg b.i.d. now. I will be glad to see Mr. Billy as an outpatient to follow up on the oxcarbazepine dosing and seizure management, if needed. Thanks for asking neurology to see him. cc: MD JOSE ROBERTO Fang III
[2019-04-04 13:23] VITALS: BP 143/71
--- NOTE | 2019-04-04 14:20 | Diag Imaging Result Doc PS360 ---
EXAM: CT HEAD W/WO CONTRAST INDICATION: seizures. Patient unable to do MRI. Follow up TECHNIQUE: This exam was performed using automated exposure control, adjustment of mA or kV according to patient size, and/or use of iterative reconstruction technique. COMPARISON: 04/01/2019 FINDINGS: There is stable right frontal lobe encephalomalacia. There is no definite acute infarct given the limited sensitivity of CT versus MRI. There is no discrete intracranial mass, mass effect, or intracranial hemorrhage. There is no evidence of abnormal intracranial enhancement. The surrounding soft tissues and bony structures are essentially unremarkable. IMPRESSION: Stable right frontal encephalomalacia. No acute intracranial pathology identified and no abnormal enhancement. Electronically signed by Terence Mc 04/04/2019 2:18 PM
[2019-04-04] MEDS ORDERED: TRILEPTAL PO SCH (21:00)
--- NOTE | 2019-04-04 21:43 | DISCHARGE SUMMARY ---
ADMISSION DATE: 04/01/2019 DISCHARGE DATE: 04/04/2019 DISPOSITION: Home. FOLLOW-UP: Dr. Gibbs. CONSULTATION DURING THIS ADMISSION: Neurology was consulted. Patient was seen by Dr. Gibbs. INVASIVE PROCEDURES DONE DURING THIS ADMISSION: None. IMAGING STUDIES OF SIGNIFICANCE: A chest x-ray did not show any acute issue. A CT scan showed no acute disease or change from prior. A repeat CT scan today shows stable right frontal encephalomalacia. No acute intracranial abnormality. ADMISSION DIAGNOSIS: 1. Seizure disorder. 2. 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 3. Dyslipidemia. 4. Acute kidney injury. DIAGNOSIS AT THE TIME OF DISCHARGE: 1. Altered mental status on presentation with prolonged postictal state associated with tongue biting, bowel and urinary incontinence, suggestive of seizure episodes. The patient was evaluated by neurology. Recommendation was to start him on antiepileptic medications. 2. History of paroxysmal atrial fibrillation with bradycardia. Patient is status post pacemaker. 3. Hypertension. 4. Acute kidney injury, resolved. 5. Previous history of right frontal lobe stroke with stable encephalomalacia. DISCHARGE MEDICATIONS: 1. Eliquis 2.5 b.i.d. 2. Losartan 100 mg p.o. daily. 3. Amlodipine 10 mg p.o. daily. 4. Atorvastatin 10 mg p.o. daily. 5. Trileptal 300 mg b.i.d. PRESENTING COMPLAINT: Seizures. HISTORY OF PRESENT COMPLAINT: Mr. Billy is a 69-year-old male who had an old right frontal lobe hemorrhagic stroke in the past with stable encephalomalacia, came into the emergency room because of some altered mental status with prolonged postictal status. The patient was found to have bitten his tongue and had bowel incontinence. The patient initially went to [place], where he was evaluated. He actually wanted to go home. However, during the ER stay at [place], he had 3 [id number] seizures and was transferred from [facility] to [facility]. Mr. Billy was admitted to the ICU for further medical care. HOSPITAL COURSE: Mr. Billy was started on IV Keppra and he did remain fairly stable, was evaluated by Dr. Lester, followed up by Dr. Tobias. During the hospital course, Mr. Billy' mentation resolved and did not have any more seizures. Unfortunately, yesterday he was fairly ready to be discharged, but then he had episode whereby he was seeing the television upside down. He thought he was out of his body, which we interpreted to be possible Keppra side effects. This was discontinued and the patient was started on oxcarbazepine which neurology has advised we go up to 300 b.i.d. Mr. Billy this morning refers to be feeling a whole lot better. He does not have any more of the episode of things going upside down. We have had repeat CT scan of the brain with IV contrast which did not show any new findings. Of note, Mr. Billy cannot do an MRI because of a pacemaker. He is therefore deemed clinically stable to be discharged and follow up with Neurology during the hospital course. Neurology did discuss [place] code for seizure patient in terms of driving, operating machinery, and doing any dangerous or risky jobs. All the discharge instructions have been discussed with Mr. Billy and the , who was at the bedside, in their [place] language, Nepalese, and they both voiced understanding. Time spent for discharge is 37 minutes. The patient's PCP is Dr. Rocky Mon. cc: MD Annmarie Rodriguez III, MD Dr. Ali Hasham MTDD
== END 2019-04-04 15:21 | disposition home or self-care (01) | DRG 56 ==
LOC: 1N → P.MEDSURG → EDIPHOLD → P.MEDSURG 17:21 → P.ED 17:21 → SUATTDRO 22:22 → OBSVTOIN 22:22 → EDIPHOLD 04-02 05:05 → 1N 04-02 05:50 → EDIPHOLD 04-02 05:51 → ICU 04-02 14:59
PROVIDERS: ATTEND Internal Medicine